=== PATIENT | female | born 2000 | race Caucasian/White ===

== ENCOUNTER 2024-05-06 12:35 | Outpatient (CLI) | payer BC, SELFPAY ==
[2024-05-06 13:42] LABS: HCG,Quantitative 15 mIU/ml (0-5.42)
[2024-05-07 03:36] LABS: Progesterone 1.9 ng/mL (.)
== END 2024-05-06 23:59 | disposition home or self-care (01) ==
PROVIDERS: PCP Family Medicine; Visit Provider Obstetrics & Gynecology
DX: N92.6 Irregular menstruation, unspecified (principal); O02.81 Inappropriate change in quantitative human chorionic gonadotropin (hCG) in early pregnancy; E28.2 Polycystic ovarian syndrome; O03.9 Complete or unspecified spontaneous abortion without complication
CPT/HCPCS: 36415; 84144; 84702

== ENCOUNTER 2024-05-08 12:36 | Outpatient (CLI) | payer BC, SELFPAY ==
[2024-05-08 14:06] LABS: HCG,Quantitative 6 mIU/ml (0-5.42)
== END 2024-05-08 23:59 | disposition home or self-care (01) ==
LOC: LAB 12:38
PROVIDERS: PCP Family Medicine; Visit Provider Obstetrics & Gynecology
DX: O20.0 Threatened abortion (principal)
CPT/HCPCS: 36415; 84702

== ENCOUNTER 2024-05-09 14:00 | Outpatient (CLI) | payer BC, SELFPAY ==
[2024-05-09 14:56] LABS: Hemoglobin A1C 5.1 % (4.0-6.0)
[2024-05-09 15:14] LABS: HCG,Quantitative 5 mIU/ml (0-5.42)
[2024-05-09 15:28] LABS: Thyroid Stimulating Hormone 2.19 uIU/mL (0.465-4.68)
[2024-05-10 03:38] LABS: Testosterone,Total 28 ng/dL (13-71)
[2024-05-10 04:22] LABS: FSH 4.8 mIU/mL (.)
== END 2024-05-09 23:59 | disposition home or self-care (01) ==
LOC: LAB 14:01
PROVIDERS: PCP Family Medicine; Visit Provider Obstetrics & Gynecology
DX: E28.2 Polycystic ovarian syndrome; N91.1 Secondary amenorrhea; O02.81 Inappropriate change in quantitative human chorionic gonadotropin (hCG) in early pregnancy; Z13.1 Encounter for screening for diabetes mellitus
CPT/HCPCS: 36415; 82626; 82670; 83001; 83036; 83498; 84403; 84443; 84702

== ENCOUNTER 2024-06-03 13:58 | Outpatient (CLI) | payer BC, SELFPAY ==
[2024-06-03 15:33] LABS: HCG,Quantitative < 2 mIU/ml (0-5.42)
[2024-06-04 03:37] LABS: Progesterone 6.9 ng/mL (.)
== END 2024-06-03 23:59 | disposition home or self-care (01) ==
LOC: LAB 14:00
PROVIDERS: PCP Family Medicine; Visit Provider Obstetrics & Gynecology
DX: O02.81 Inappropriate change in quantitative human chorionic gonadotropin (hCG) in early pregnancy (principal)
CPT/HCPCS: 36415; 84144; 84702

== ENCOUNTER 2024-12-26 11:01 | Outpatient (CLI) | payer OTHER, SELFPAY ==
--- OUTSIDE RECORDS SUMMARY | 2000-04-26 01:00 | XMS_ITS | Encounter Summary ---
Author Organization [facility] Address [address] [place] [address] Care Team Providers Care Customer Equipment Engineer Name Role Phone Unavailable Primary Care Provider Unavailabl e Encounter Details Date Type Department Care Team (Late st Contact Info) Description 04/26/2000 Hospital Encounter [facility] Department of Radiology [address] [place] [id number] Social History Tobacco Use Types Packs/Day Years Used Date Smoking Tobacco: Never Smokeless Tobacco: Never Alcohol Use Standard Drinks/Week Comments No 0 (1 standard drink = 0.6 oz pur e alcohol) Comments Unknown Sex and Gender Information Value Date Recorded Sex Assigned at Not on file Legal Sex Female 5:11 AM EST Gender Identity Not on file Sexual Orientation Not on file documented as of this encounter Plan of Treatment Not on file documented as of this encounter Visit Diagnoses Not on filedocumented in this encounter
--- OUTSIDE RECORDS SUMMARY | 2024-12-26 11:05 | XMS_ITS | Clinical Summary ---
Author Organization [facility] Address [address] [address] [address] Phone Care Team Providers Care Products Mechanical Design Engineer Name Role Phone Johnson Brigitte Anny MONTILLA Primary Care Provider [phone] Allergies No known active allergies Medications No known medications Surgical History Surgery Date Site/Laterality Comments TONSILLECTOMY Social History Tobacco Use Types Packs/Day Years Used Date Smoking Tobacco: Never Smokeless Tobacco: Never Alcohol Use Standard Drinks/Week Comments No 0 (1 standard drink = 0.6 oz pur e alcohol) Comments No Sex and Gender Information Value Date Recorded Sex Assigned at Not on file Legal Sex Female 3:48 AM EDT Gender Identity Not on file Sexual Orientation Not on file Obstetrics History Last Filed Vital Signs Vital Sign Reading Time Taken Comments Blood Pressure 115/83 07/19/2017 5:00 AM EST Pulse 82 07/19/2017 1:49 AM EST Temperature 37 C (98.6 F) 07/19/2017 1:49 AM EST Respiratory Rate 20 07/19/2017 1:49 AM EST Oxygen Saturation 96% 07/19/2017 5:59 AM EST Inhaled Oxygen Concentration - - Weight 104.3 kg (230 lb) 07/19/2017 1:49 AM EST Height 157.5 cm (5' 2 ) 07/19/2017 1:49 AM EST Body Mass Index 42.07 07/19/2017 1:49 AM EST Plan of Treatment Health Maintenance Due Date Last Done Comments Annual Wellness Exam 2002 HPV (1 - 3-dose series) 2014 DTaP/TDaP/Td (1 - Tdap) 2018 Hepatitis B Vaccine (1 of 3 - 19+ 3-dose series) 2018 Cervical Cancer Screening 2020 Pap Smear 2020 COVID-19 Vaccine ( - 2023-2 5 season) 2024 Influenza Vaccine (#1) 2025 Meningococcal B Vaccine Aged Out No l onger eligible based on patient's age to complete this topic Pneumococcal Vaccine 0-49 Aged Out No longer eligible based on patient's age to complete this topic Insurance [facility] MED[facility] Care Teams Products Mechanical Design Engineer Relationship Specialty Start Date End Date Brigitte Ornelas APRN [address] [place] [address] PCP - General Nurse Practitioner-Pediatrics 02/03/16
--- OUTSIDE RECORDS SUMMARY | 2024-12-26 11:05 | XMS_ITS | Clinical Summary ---
Author Organization [facility] Address [address], [address] [place] [address] Care Team Providers Care Technical Sales Support Specialist Name Role Phone System, Referring Not In Primary Care Provider U navailable Allergies No known active allergies Social History Tobacco Use Types Packs/Day Years Used Date Smoking Tobacco: Never Alcohol Use Standard Drinks/Week Comments No 0 (1 standard drink = 0.6 oz pur e alcohol) Comments Unknown Sex and Gender Information Value Date Recorded Sex Assigned at Not on file Legal Sex Female 1:15 PM EST Gender Identity Not on file Sexual Orientation Not on file Last Filed Vital Signs Vital Sign Reading Time Taken Comments Blood Pressure 110/75 09/16/2015 1:36 PM EDT Pulse 101 09/16/2015 1:[address] Andres chen with d/c with sinus tach Temperature 36.9 C (98.5 F) 09/16/2015 12:47 PM EDT Respiratory Rate 16 09/16/2015 1:36 PM EDT Oxygen Saturation 100% 09/16/2015 1:3 6 PM EDT Inhaled Oxygen Concentration - - Weight 88.5 kg (195 lb) 09/16/2015 12:4 7 PM EDT Height 158.8 cm (5' 2.5 ) 09/16/2015 12 :47 PM EDT Body Mass Index 35.1 09/16/2015 12:47 PM EDT Plan of Treatment Not on file Insurance [employer] [facility] Care Teams Technical Sales Support Specialist Relationship Specialty Start Date End Date System, Referring Not In PCP - General 09/16/15
--- OUTSIDE RECORDS SUMMARY | 2024-12-26 11:05 | XMS_ITS | Clinical Summary ---
Author Organization [facility] Address [address] [place] [address] Care Team Providers Care Ship Joiner Name Role Phone Brigitte Ornelas APRN Primary Care Provider [phone] Allergies Active Allergy Reactions Criticality Noted Date Comments Amoxicillin Hives Medium 12/30/2021 Sulfamethoxazole-Trimethoprim Hives Medium 2021 Medications acetaminophen (Tylenol) 325 MG tablet Take 2 tablets (650 mg total) by mouth every 6 (six) hours. 100 tablet 01/01/2022 Active Active Problems Problem Noted Date Diagnosed Date Gestational hypertension 01/01/2022 Resolved Problems Problem Noted Date Diagnosed Date Resolved Date premature rupture of membranes (PPROM) with unknown onset of labor 12/30/2021 073 Immunizations Immunization Administration Dates Next Due Rho (D) Immune Globulin 12/31/2021 Social History Tobacco Use Types Packs/Day Years Used Date Smoking Tobacco: Never Smokeless Tobacco: Never Alcohol Use Standard Drinks/Week Comments Never 0 (1 standard drink = 0.6 oz pur e alcohol) Comments No Sex and Gender Information Value Date Recorded Sex Assigned at Not on file Legal Sex Female 11:28 PM EDT Gender Identity Not on file Sexual Orientation Not on file Last Filed Vital Signs Vital Sign Reading Time Taken Comments Blood Pressure 132/90 01/01/2022 8:07 AM EDT Pulse 76 01/01/2022 8:07 AM EDT Temperature 36.6 C (97.8 F) 01/01/2022 8:07 AM EDT Respiratory Rate 18 01/01/2022 8:07 AM EDT Oxygen Saturation 94% 01/01/2022 8:07 AM EDT Inhaled Oxygen Concentration - - Weight 120 kg (265 lb) 12/30/2021 1:28 AM EDT Height 154.9 cm (5' 1 ) 12/30/2021 1:28 AM EDT Body Mass Index 50.07 12/30/2021 1:28 AM EDT Plan of Treatment Not on file Advance Directives * Full Code (Latest Code Status on File) Date Activated Date Inactivated Comments 12/30/2021 1:46 AM 01/01/2022 5:34 PM Question Answer Comments Patient has decision-making capacity? Yes Care Teams Ship Joiner Relationship Specialty Start Date End Date Brigitte Ornelas APRN [address] [place] [address] PCP - General 12/30/21 12/03/27
--- OUTSIDE RECORDS SUMMARY | 2024-12-26 11:06 | XMS_ITS | Clinical Summary ---
Author Organization [facility] Address [address] [place] [id number] Care Team Providers Care Machine Rigger Name Role Phone OrnelasSriramMioluna Brigitte MONTILLA-COMMUNICATIONS ATTENDANT Primary Care Provid er Source Comments [facility] is fully rolled out with thefollowing exceptions:[facility] Allergies No known active allergies Medications ibuprofen (MOTRIN) 800 MG tablet Take 800 mg by mouth every 6 hours as needed. Active diclofenac sodium (VOLTAREN) 75 MG delayed release tabletIndication s:Arthralgia of both knees Take 1 Tab (75 mg total) by mouth 2 times a day. 40 Tab 1 02/18/2015 Active methocarbamol (ROBAXIN) 500 MG tabletIndication s:Arthralgia of both knees Take 1 Tab (500 mg total) by mouth 3 times a day. 30 Tab 1 02/18/2015 Active metFORMIN (GLUCOPHAGE) 500 MG tablet Take 500 mg by mouth 2 times a day. Active norelgestromin-e thinyl estradiol (XULANE) 150-35 MCG/24HR patch Apply 1 Patch every 7 days. Active Active Problems Problem Noted Date Diagnosed Date Syncope 03/19/2015 Chest pain on exertion 10/16/2014 Headache, chronic daily 10/16/2014 Back pain 10/16/2014 Dizziness 10/16/2014 Family History Medical History Relation Name Comments ADHD/ADD Brother Headaches Father High Blood Pressure Father Hypertension Father Diabetes Mellitus Maternal Grandfather Diabetes Mellitus Maternal Grandmother Hypertension Maternal Grandmother Thyroid Disease Maternal Grandmother Asthma Mother Depression Mother Headaches Mother Migraines Mother Sleep Apnea Mother Diabetes Mellitus Paternal Grandfather Diabetes Mellitus Paternal Grandmother ADHD/ADD Sister Diabetes Mellitus Sister Relation Name Status Comments Brother Father Alive Maternal Grandfather Alive Maternal Grandmother Alive Mother Alive Paternal Grandfather Paternal Grandmother Alive Sister Social History Tobacco Use Types Packs/Day Years [...] Sign Reading Time Taken Comments Blood Pressure 135/75 03/19/2015 9:55 AM EDT Pulse 98 03/19/2015 9:55 AM EDT Temperature - - Respiratory Rate 20 03/19/2015 9:51 AM EDT Oxygen Saturation - - Inhaled Oxygen Concentration - - Weight 92.1 kg (203 lb) 03/19/2015 9:51 AM EDT Height 157.9 cm (5' 2.17 ) 03/19/2015 9:51 AM ED T Body Mass Index 36.93 03/19/2015 9:51 AM EDT Plan of Treatment Health Maintenance Due Date Last Done Comments MMR IMMUNIZATION (1 of 1 - S tandard series) 2000 DTAP/Tdap/Td IMMUNIZATION (1 - Tdap) 2006 VARICELLA IMMUNIZATION (1 of 2 - 13+ 2-dose series) 2012 HPV IMMUNIZATION (1 - 3-dose series) 2014 HEPATITIS B IMMUNIZATION (1 of 3 - 19+ 3-dose series) 2018 COVID-19 Vaccine (1 - 2023-2 5 season) 2024 AMB SEASONAL FLU VACCINE (#1) 02/03/2025 HIB IMMUNIZATION Aged Out No longer e ligible based on patient's age to complete this topic IPV IMMUNIZATION Aged Out No longer e ligible based on patient's age to complete this topic MCV4 IMMUNIZATION Aged Out No longer eligible based on patient's age to complete this topic MENINGOCOCCAL B VACCINE Aged Out No l onger eligible based on patient's age to complete this topic PNEUMOCOCCAL IMMUNIZATION Aged Out No longer eligible based on patient's age to complete this topic Respiratory Syncytial Virus (RSV) <20mo Aged Out No longer eligible b ased on patient's age to complete this topic Insurance [employer] [facility] Care Teams Machine Rigger Relationship Specialty Start Date End Date Brigitte Richards, ROLDAN-COMMUNICATIONS ATTENDANT [address] [place] [address] PCP - General 04/22/14
--- OUTSIDE RECORDS SUMMARY | 2024-12-26 11:06 | XMS_ITS | Data Portability ---
Author Organization [facility] Address [address] [place] [address] Assessment Encounter Date Assessment Date Assessment LastModified by Organization Details LastModified Time 04/29/2024 04/29/2024 -Medications were reviewed and any necessary updates and renewals were made, patient instructed to complete as prescribed. -The potential side effects of medications were discussed. -Counseling was done on care goals and ways to prevent future hospitalizatio ns. -Further treatment per orders listed below. -Will call with lab results when available. RTO for new or worsening symptoms. [email or web address] Not available 04/29/2024 17:57:13 09/30/2024 09/30/2024 Call office with questions or concerns. RTO for new or worsening symptoms. [email or web address] Not available 09/30/2024 11:42:23 Plan of Treatment Reminders Order Date Submit Date Provider Last Modified By Organization Details Last Modified Time Details Appointments None recorded. Lab TSH + free T4, serum 2023 024 [email or web address] [facility], [address], Alfredo [address], [place], [address], 4 09:54:09 CMP, serum or plasma 2023 024 [email or web address] [facility], [address], [place] [address], [place], [address], 4 10:41:40 C reactive protein, QN, serum or plasma 2023 024 [facility], [address], [address] [address], [place], [address], 4 10:41:40 erythrocyte sedimentati on rate by westergren method 2023 024 [email or web address] [facility], [address], [place] [address], [place], [address], 4 10:41:40 Referral breast surgery referral - [facility] brandon, Dr Murray please 2023 024 [facility] 12 Krissy Mcmanus MD, [address] [place], [address], 5 15:06:53 Procedures None recorded. Surgeries None recorded. Imaging XR, knee, 3 view 2024 025 AURY Not available 5 09:02:49 Medication Orders clindamycin HCl 300 mg capsule 2023 024 [facility], [address] [place] [address], [address], 4 15:32:47 phentermine 37.5 mg tablet 2023 024 [facility], [address] [place] [address], [address], 4 15:32:44 Patient TargetsNo targets recorded. Patient Instructions Encounter Date Encounter Id Patient Instructions Last Modified By Organization Details Last Modified Time 09/30/2024 [id number] body mass index: care instructions [email or web address] Not available 09/30/2024 11:43:25 Reason for Referral Breast Surgery Referral for Neck pain [facility] brandon, Dr Murray please Referring Physician: Doug Corrales, Family Medicine, Encounter Date: 02/01/2024 Results Created Date Observation Date Name Description Value Unit Range Abnormal Flag Note LastModifiedBy Organization Detail LastModifiedTime 04/24/20 24 04/23/2024 XR, chest , 2 view No observ ation record ed. [email or web address] Not Available 2023 17:53:37 10/03/19 25 10/02/2024 XR, knee, 3 view No observ ation record ed. [email or web address] Not Available 2024 11:06:47 Result Notes None recorded. Problems Name Problem SNOMED Code Status Onset Date Resolution Date Notes Provider Name and Address Organization Details Recorded Time Immuniza tion due [id number] Completed [-] Flu-decl giancarlo [-] Covid-de clines [x] Tdap-11/04 01/24 Rajat Good RN [address], [place], [address], [place] [facility] 2 14:31:31 Antenata l screenin g Completed [-] CF-ask at [facility] lines [x] MaternIT -- 46XX [x] AFP negative Rajat Good RN [address], [place], [address], [place] [facility] 2 14:31:31 Marginal insertio n of umbilica l cord [id number] Completed [ ] q 4 wk growth/A FI US @ 28 wk Rajat Good RN [address], [place], [address], [place] [facility] 2 14:31:31 RhD negative [id number] Completed Rhogam given 11/15 [x] Ab screen negative Rajat Good RN [address], [place], [address], [place] [facility] 2 14:31:31 Impaired glucose toleranc e in pregnanc y [id number] Completed 1 hour 149 [x] 3 hour-nml ; FBS 77, 1hr 125, 2hr 130, 3hr 150 Rajat Good RN [address], [place], [address], [place] [facility] 2 14:31:31 Urinary tract infectio n in pregnanc y [id number] Completed 3 BACTERIA --see below Rajat Good RN [address], [place], [address], [place] [facility] 2 14:31:31 Itching of skin 202761034 Completed rx diphenhy dramine and triamcin alone given bile acids/LF Ts obtained Rajat Good RN [address], [place], [address], [place] [facility] 2 14:31:31 Contrace ption care Completed Planning patch? 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 Aria Bravo, [employer] [employer] [address], [place], [address], [place] [facility] 3 15:55:07 Prediabe seda 265874794 Completed 202103/30/2023 Marya Sarah, [employer] [address], [place], [address], [place] [facility] 3 10:49:22 Maternal obesity complica ting pregnanc y, childbir th and the puerperi , antepart [id number] 07 Completed 2021 BMI 45.7, h/o Prediabe seda A1c @ Hx 5.3% [x] Early 1hr GTT-131; [x] Nutritio n Referral -08/02/21 [x] Baby ASA Rajat Good RN [address], [place], [address], [place] [facility] 2 14:31:31 Maternal obesity complica ting pregnanc y, childbir th and the puerperi um, antepart 0206208807 07 Completed 202107/18/2022 BMI 45.7, h/o Prediabe seda A1c @ Hx 5.3% [x] Early 1hr GTT-131; [x] Nutritio n Referral -08/02/21 [x] Baby ASA [facility] [address], [place], [address], [place] - [facility] 3 12:01:22 Primigra pablo [id number] Completed 2021 [x]x 81mg ASA start 2nd TM (pending dating [place]) advised 07/23; rx sent 08/02 Marianne Foster MD [address], [place], [address], [place] [facility] 2 19:31:43 Primigra pablo [id number] Completed 202107/18/2022 [x]x 81mg ASA start 2nd TM (pending dating [place]) advised 07/23; rx sent 08/02 [facility] [address], [place], [address], [place] [facility] 3 12:01:11 Irregula r periods 33162569 Completed 2021 Marianne Foster MD [address], [place], [address], [place] [facility] 2 19:30:49 Irregula r periods 43055315 Completed 202110/21/2021 Cristiana Woody APRN [address], [place], [address], [place] [facility] 2 12:17:32 Nausea 930257788 Completed 2021 B6 25mg TID Rajat Good RN [address], [place], [address], [place] [facility] 2 14:31:31 Nausea 551378473 Completed 202107/18/2022 B6 25mg TID [facility] [address], [place], [address], [place] [facility] 3 12:01:15 Heartbur n 31974551 Completed 2021 Famotidi ne 20mg BID Rajat Good RN [address], [place], [address], [place] [facility] 2 14:31:31 Heartbur n 65259537 Completed 202107/19/2022 Famotidi ne 20mg BID Aria Bravo APRN [address], [place], [address], [place] [facility] 3 15:55:13 History of depressi on 028618218 Active 2021 was medicate d age 11-13; declines med, no current concerns Aria Bravo APRN [address], [place], [address], [place] [facility] 3 15:55:00 History of depressi on 220446614 Completed 2021 was medicate d age 12-13; declines med, no current concerns Rajat Good RN [address], [place], [address], [place] [facility] 2 14:31:31 Glucose toleranc e test outside referenc e range 385954824 Completed 202107/18/2022 [facility] [address], [place], [address], [place] [facility] 3 12:01:26 Glucose toleranc e test outside referenc e range 867940736 Completed 2021 Marya Sarah APRN [address], [place], [address], [place] [facility] 2 10:21:03 Blood group A Rh(D) negative 242386489 Active 2022 Aria Bravo APRN [address], [place], [address], [place] [facility] 3 15:54:52 Miscarri age 50100004 Completed 202203/30/2023 Marya Sarah APRN [address], [place], [address], [place] [facility] 3 10:49:26 Family history of breast cancer 829380575 Active 2022 MG; had breast cancer age 36 then again in her 50s Marya Sarah, [employer] [address], [place], [address], [place] [facility] 3 10:48:15 Amenorrh ea 23701612 Active 2022 Marya Sarah, [employer] [employer] [address], [place], [address], [place] [facility] 3 10:51:42 Vaginal irritati on 005187149 Active 2022 Marya Sarah, [employer] [employer] [address], [place], [address], [place] [facility] 3 10:51:46 Dyslipid emia 949708903 Active 2022 Marya Sarah, [employer] [employer] [address], [place], [address], [place] [facility] 3 15:48:18 Mixed anxiety and depressi ve disorder 091630356 Active 2023 Doug Corrales MD [address], [place], [address], [place] [facility] 4 19:02:17 Pain of knee region 2835499976 Active 2024 Any Tyler, [employer] [employer] [address], [place], [address], [place] [facility] 5 11:38:29 Problem Notes None recorded. Procedures Surgical History Date Name Laterality Status Provider Name and Address Organization Details Recorded Time 04/29/20 24 Medication Reconcilliation completed Denise Nieves [place] - [facility] 04/29/2024 15:09:39 12/18/19 22 OB Ultrasound Summary completed Keli Spears [place] - [facility] 12/17/2021 10:55:31 11/16/19 22 OB Ultrasound Summary completed Laura Holman [place] - [facility] 11/15/2021 10:19:25 09/24/19 22 OB Ultrasound Summary completed Laura Holman [place] [facility] 09/23/2021 16:42:34 08/02/19 22 Date of Last Pap Smear completed Marya Tyrel, [employer] [employer] [address], [place], [address], [place] [facility] 08/05/2021 13:03:16 07/23/19 22 OB Ultrasound Summary completed Laura Holman [place] - [facility] 07/23/2021 14:18:41 06/08/19 19 Systolic B/P less than 130 mm Hg completed Siria Chayo [place] - [facility] 06/08/2018 15:00:13 06/08/19 19 Diastolic B/P 80-89 mm Hg completed Siria Chayo [place] - [facility] 06/08/2018 15:00:17 tonsilectomy/adeno ids completed Crystal Gely [place] - [facility] 08/23/2016 11:02:27 Imaging Results None recorded. Procedure Notes None recorded. Medical Equipment None Reported. Allergies Allergen ID Allergen Name Allergen Category Reaction Reaction Severity Criticality Documentation Date Start Date Code Code System Note Provider Name and Address Organization Details Recorded Time [id number] amoxicill in medicatio n hives Not available Not available 03/30/2023 723 RxNorm Gladys dia, [place] - [facility] 10:17:07 Medications Name Sig Start Date Stop Date Status Note LastModified by Organization Details LastModified Time amoxicill in 500 mg capsule TAKE ONE (1) CAPSULE TWICE A DAY BY ORAL ROUTE FOR 7 DAYS. 12/28 completed Not Available Not Available Not Available medroxypr ogesteron e 10 mg tablet TAKE ONE (1) TABLET (10 MG) BY ORAL ROUTE ONCE DAILY FOR 10 DAYS 11/06 completed Not Available Not Available Not Available metformin 500 mg tablet take 1 tablet (500 mg) by oral route 2 times per day with morning and evening meals for 30 days 01/11 completed metformi n 500 mg oral tablet;P rescribe Status: Prescrib ed on: 06/03/20 15 2:43PM;D iscontin ued Status: Disconti nued on: 01/12/20 16 2:42PM;U ser: tartern; Est. Completi on: 08/02/19 16;Pharm acyVerif ied: 06/03/20 15 2:43PM Not Available Not Available Not Available Augmentin 875 mg-125 mg tablet take 1 tablet by oral route every 12 hours for 7 days 07/21 completed Not Available Not Available Not Available acetamino phen 325 mg tablet 03/30 completed Not Available Not Available Not Available Ovide 0.5 % lotion apply by topical route to dry hair and rub gently until the scalp is thorough ly moistene d and let dry naturall y; shampoo after 8-12 hours fo 04/26 completed Ovide 0.5 % topical lotion;P rescribe Status: Prescrib ed on: 04/08/20 13 9:10AM;D iscontin ued Status: Disconti nued on: 04/26/20 13 4:38PM;U ser: vesth;Es t. Completi on: 04/09/20 13;Pharm acyVerif ied: 04/08/20 13 9:10AM Not Available Not Available Not Available clindamyc in HCl 300 mg capsule Take 1 capsule 3 times a day by oral route after meal(s) for 7 days. 04/29 completed Not Available Not Available Not Available Vitamin C 500 mg tablet Take 1 tablet twice a day by oral route for 30 days. 07/21 completed Not Available Not Available Not Available triamcino lone acetonide 0.5 % topical cream apply a thin film to the affected skin areas by topical route 2 times per day for 7 days 02/24 completed triamcin olone acetonid e 0.5 % topical cream;Re corded Status: Recorded on: 02/04/20 10 10:49AM; Disconti nued Status: Disconti nued on: 02/25/20 11 4:01PM;U ser: rankinw; Est. Completi on: 02/11/20 10 Not Available Not Available Not Available azithromy esperanza 250 mg tablet TAKE 2 TABLETS TODAY, THEN TAKE 1 TABLET EVERY DAY FOR 4 DAYS 07/21 completed Not Available Not Available Not Available ibuprofen 800 mg tablet TAKE 1 TABLET BY MOUTH EVERY 12 HOURS NEEDED FOR PAIN 03/30 completed Not Available Not Available Not Available B Complex-V itamin B12 tablet TAKE ONE (1) TABLET EVERY DAY BY ORAL ROUTE FOR 30 DAYS. 07/21 completed Not Available Not Available Not Available Cheratuss in DAC 30 mg-10 mg-100 mg/5 mL oral syrup take 5 millilit ers by oral route every 6 hours as needed for 10 days 07/29 completed Meagan reddy DAC 30-10-10 0 mg/5 mL oral syrup;Re corded Status: Recorded on: 07/02/19 10 3:42PM;D iscontin ued Status: Disconti nued on: 07/29/19 10 2:46PM;U ser: gored;Es t. Completi on: 07/12/19 10;Indic ation: Cold Symptoms - () Not Available Not Available Not Available promethaz ine 12.5 mg tablet take 1/2 - 1 tablet by oral route PRN for nausea 08/03 completed prometha zine 12.5 mg oral tablet;R ecorded Status: Recorded on: 06/29/19 12 2:00PM;D iscontin ued Status: Disconti nued on: 08/04/19 12 10:44AM; User: ritchie;Nicole tDionne Completi on: 07/06/19 12;Print ed: 06/29/19 12 Not Available Not Available Not Available pyridoxin e (vitamin B6) 25 mg tablet Take 1 tablet 3 times a day by oral route for 30 days. 10/21 completed Not Available Not Available Not Available ondansetr on HCl 4 mg tablet 11/16 completed Not Available Not Available Not Available fluoxetin e 10 mg tablet take 1 tablet by oral route daily for 30 days 04/26 completed fluoxeti ne 10 mg oral tablet;P rescribe Status: Prescrib ed on: 03/13/20 13 2:29PM;D iscontin ued Status: Disconti nued on: 04/26/20 13 4:38PM;U ser: jonest;E st. Completi on: 07/11/19 14;Indic ation: Depressi on - (311);Ph armacyVe rified: 03/13/20 13 2:29PM Not Available Not Available Not Available prednison e 5 mg tablet take 1 tablet (5 mg) by oral route 2 times per day for 7 days 02/02 completed predniso ne 5 mg oral tablet;P rescribe Status: Prescrib ed on: 01/22/20 15 2:04PM;D iscontin ued Status: Disconti nued on: 02/03/20 15 12:50PM; User: Roni whalen Jeniarun on: 01/29/20 15;Pharm Neelima ied: 01/22/20 15 2:04PM Not Available Not Available Not Available Pyridium 200 mg tablet Take 1 tablet 3 times a day by oral route as needed for 3 days. 06/29 completed Not Available Not Available Not Available promethaz ine 6.25 mg-codein e 10 mg/5 mL syrup Take 5 mL every 6 hours by oral route. 12/14 completed Not Available Not Available Not Available phentermi ne 37.5 mg tablet TAKE ONE (1) TABLET EVERY DAY BY ORAL ROUTE BEFORE A MEAL FOR 30 DAYS. 04/29 completed Not Available Not Available Not Available melatonin 3 mg tablet 04/06 completed melatoni n 3 mg oral tablet;R ecorded Status: Recorded on: 07/29/19 10 2:46PM;D iscontin ued Status: Disconti nued on: 04/06/20 12 1:00PM;U ser: vesth Not Available Not Available Not Available Tamiflu 75 mg capsule take 1 capsule (75 mg) by oral route 2 times per day for 5 days 07/21 completed Not Available Not Available Not Available sulfameth oxazole 800 mg-trimet hoprim 160 mg tablet TAKE ONE (1) TABLET EVERY 12 HOURS BY ORAL ROUTE FOR 7 DAYS. 12/28 completed Not Available Not Available Not Available triamcino lone acetonide 0.1 % topical cream APPLY A THIN LAYER TO THE AFFECTED AREA(S) BY TOPICAL ROUTE TWO (2) TIMES PER DAY NEEDED FOR PRURITUS 07/18 completed Not Available Not Available Not Available amoxicill in 500 mg tablet take 1 tablet (500 mg) by oral route 3 times per day for 10 days 08/04 completed amoxicil ryne 500 mg oral tablet;P rescribe Status: Prescrib ed on: 07/15/19 15 2:28PM;D iscontin ued Status: Disconti nued on: 08/05/19 15 3:37PM;U ser: gored;Es t. Completi on: 07/25/19 15;Pharm acyVerif ied: 07/15/19 15 2:28PM Not Available Not Available Not Available Miconazol e-7 2 % vaginal cream INSERT ONE (1) APPLICAT ORFUL EVERY DAY BY VAGINAL ROUTE FOR 7 DAYS. 07/18 completed Not Available Not Available Not Available famotidin e 20 mg tablet TAKE ONE (1) TABLET TWICE A DAY BY ORAL ROUTE. 07/18 completed Not Available Not Available Not Available Depo-Prov era 150 mg/mL intramusc ular suspensio n Inject 1 mL every 3 months by intramus cular route. 06/08 completed Not Available Not Available Not Available dicyclomi ne 20 mg tablet 11/16 completed Not Available Not Available Not Available hydrocort isone 1 % topical cream APPLY A THIN LAYER TO THE AFFECTED AREA(S) BY TOPICAL ROUTE TWO (2) TIMES PER DAY 07/18 completed Not Available Not Available Not Available cephalexi n 500 mg capsule TAKE ONE (1) CAPSULE EVERY DAY BY ORAL ROUTE FOR 30 DAYS. TAKE REMAINDE R OF PREGNANC Y. 07/18 completed Not Available Not Available Not Available Gas Relief (simethic one) 80 mg chewable tablet 07/18 completed Not Available Not Available Not Available Proctofoa m HC 1 %-1 % apply to the affected area(s) by topical route 4 times per day for 7 days 01/11 completed Proctofo am HC 1-1 % rectal foam;Pre scribe Status: Prescrib ed on: 03/23/20 15 12:47PM; Disconti nued Status: Disconti nued on: 01/12/20 16 2:42PM;U ser: andrusa; Est. Completi on: 03/30/20 15;Pharm acyVerif ied: 03/23/20 15 12:47PM Not Available Not Available Not Available clotrimaz ole-betam ethasone 1 %-0.05 % topical cream APPLY TO THE AFFECTED AND SURROUND ING AREAS OF SKIN BY TOPICAL ROUTE TWO (2) TIMES PER DAY IN THE MORNING AND EVENING FOR TWO (2) WEEKS 11/06 completed Not Available Not Available Not Available diphenhyd ramine 25 mg tablet take 1-2 tablets by oral route every 6 hours as needed for itching 07/18 completed Not Available Not Available Not Available Banophen 25 mg capsule TAKE ONE (1) TO TWO (2) CAPSULES BY MOUTH EVERY SIX (6) HOURS NEEDED FOR ITCHING 07/18 completed Not Available Not Available Not Available Cefzil 250 mg/5 mL oral suspensio n take 7.5 millilit ers by oral route every 12 hours 07/29 completed Cefzil 250 mg/5 mL oral suspensi on for reconsti tution;R ecorded Status: Recorded on: 07/02/19 10 3:42PM;D iscontin ued Status: Disconti nued on: 07/29/19 10 2:46PM;U ser: gored;Es t. Completi on: 07/12/19 10 Not Available Not Available Not Available zinc gluconate 50 mg tablet TAKE ONE (1) TABLET TWICE A DAY BY ORAL ROUTE FOR 14 DAYS. 07/21 completed Not Available Not Available Not Available zinc 50 mg tablet Take 1 tablet twice a day by oral route for 14 days. 07/21 completed Not Available Not Available Not Available ranitidin e 150 mg capsule take 1 capsule (150 mg) by oral route once daily at bedtime for 14 days 02/05 completed ranitidi ne HCl 150 mg oral capsule; Prescrib e Status: Prescrib ed on: 01/22/20 15 2:04PM;D iscontin ued Status: Disconti nued on: 02/06/20 15 4:08PM;U ser: jonest;E st. Completi on: 02/05/20 15;Pharm acyVerif ied: 01/22/20 15 2:04PM Not Available Not Available Not Available hydrochlo rothiazid e 25 mg tablet Take 1 tablet every day by oral route for 30 days. 08/31 completed Not Available Not Available Not Available permethri n 1 % topical liquid apply a sufficie nt amount of shampoo by topical route once allow to remain on hair for 10 minutes before rinsing off with water for 1 day 04/08 completed permethr in 1 % topical liquid;P rescribe Status: Prescrib ed on: 03/25/20 13 12:05PM; Disconti nued Status: Disconti nued on: 04/08/20 13 9:09AM;U ser: jonest;E st. Completi on: 03/28/20 13;Indic ation: Pediculo sis Capitis - ();Phar Manuela fied: 03/25/20 13 12:05PM Not Available Not Available Not Available dexametha sone sodium phosphate 4 mg/mL injection solution 1 ML IM 07/31 completed Not Available Not Available Not Available ibuprofen 600 mg tablet 07/18 completed Not Available Not Available Not Available methylpre dnisolone 4 mg tablets in a dose pack TAKE DIRECTED FOR SIX (6) DAYS 07/21 completed Not Available Not Available Not Available ketoconaz ole 2 % topical cream APPLY TO THE AFFECTED AREA(S) BY TOPICAL ROUTE ONCE DAILY 04/29 completed Not Available Not Available Not Available ondansetr on 4 mg disintegr ating tablet DISSOLVE 1 TABLET IN MOUTH EVERY 8 HOURS NEEDED FOR NAUSEA AND VOMITING 04/29 completed Not Available Not Available Not Available metformin ER 500 mg tablet,ex tended release 24 hr TAKE ONE (1) TABLET TWICE A DAY BY ORAL ROUTE FOR 30 DAYS. 01/31 completed Not Available Not Available Not Available Ortho Tri-Cycle n (28) 0.18 mg(7)/0.2 15mg(7)/0 .25 mg(7)-0.0 35 mg tablet take 1 tablet by oral route once daily for 28 days 04/26 completed Ortho Tri-Cycl en (28) 0.18/0.2 15/0.25 mg-35 mcg (28) oral tablet;P rescribe Status: Prescrib ed on: 03/13/20 13 2:30PM;D iscontin ued Status: Disconti nued on: 04/26/20 13 4:38PM;U ser: jonest;E st. Completi on: 07/03/19 14;Pharm acyVerif ied: 03/13/20 13 2:30PM Not Available Not Available Not Available naproxen 500 mg tablet Take 1 tablet twice a day by oral route for 7 days. 10/15 completed Not Available Not Available Not Available progester one micronize d 100 mg capsule 09/30 completed Not Available Not Available Not Available amoxicill in 500 mg-potass ium clavulana te 125 mg tablet take 1 tablet by oral route every 8 hours for 10 days 12/14 completed Not Available Not Available Not Available Adult Low Dose Aspirin 81 mg tablet,de layed release Take 1 tablet every day by oral route. 10/21 completed Not Available Not Available Not Available Vitamin 27 mg iron-0.8 mg tablet Take 1 tablet every day by oral route for 30 days. 07/18 completed Not Available Not Available Not Available Benzaclin 1 %-5 % topical gel apply to affected area(s) by topical route once daily in the evening for 30 days 06/27 completed Benzacli n 1-5 % topical gel;Al rded Status: Recorded on: 12/03/19 10 3:26PM;D iscontin ued Status: Disconti nued on: 06/27/19 12 5:04PM;U ser: rankinw; Est. Completi on: 03/02/20 10;Indic ation: Acne Vulgaris - ([phone]);Prin victor m: 12/03/19 10 Not Available Not Available Not Available medroxypr ogesteron e 150 mg/mL intramusc ular syringe Inject 1 mL EVERY 12 weeks by intramus cular route. 07/31 completed Not Available Not Available Not Available Sprintec (28) 0.25 mg-0.035 mg tablet Take 1 tablet every day by oral route. 04/25 completed Not Available Not Available Not Available Allergy Relief (loratadi ne) 10 mg tablet take 1 tablet (10 mg) by oral route once daily for 14 days 11/06 completed Allergy Relief (loratad ine) 10 mg oral tablet;P rescribe Status: Prescrib ed on: 09/13/19 14 5:30PM;D iscontin ued Status: Disconti nued on: 11/07/19 14 4:22PM;U ser: andra;E st. Completi on: 09/27/19 14;Pharm Neelima ied: 09/13/19 14 5:30PM Not Available Not Available Not Available Antifunga l (clotrima zole) 1 % topical cream APPLY TO THE AFFECTED AND SURROUND ING AREAS OF SKIN BY TOPICAL ROUTE TWO (2) TIMES PER DAY IN THE MORNING AND EVENING FOR 14 DAYS 04/29 completed Not Available Not Available Not Available Remeron 02/05 completed Remeron oral;Rec orded Status: Recorded on: 10/04/19 15 2:25PM;D iscontin ued Status: Disconti nued on: 02/06/20 15 4:08PM;U ser: andra Not Available Not Available Not Available ProAir HFA 90 mcg/actua tion aerosol inhaler INHALE TWO (2) PUFFS EVERY FOUR (4) HOURS BY INHALATI ON ROUTE NEEDED FOR 30 DAYS. 07/21 completed Not Available Not Available Not Available HyperRHO S/D 1,500 unit (300 mcg) intramusc ular syringe Inject 300 microgra ms by intramus cular route as directed . 03/30 completed Not Available Not Available Not Available Dallergy PE 2 mg-10 mg-0.75 mg/5 mL oral liquid take 5 millilit er (2-10-0. 75 mg/5 mL) by oral route Q4-6H PRN for 10 days 02/24 completed Dallergy PE 2-10-0.7 5 mg/5 mL oral liquid;R ecorded Status: Recorded on: 07/14/19 11 4:56PM;D iscontin ued Status: Disconti nued on: 02/25/20 11 4:01PM;U ser: trista; Est. Completi on: 07/24/19 11 Not Available Not Available Not Available DOK 100 mg tablet 07/18 completed Not Available Not Available Not Available cholecalc iferol (vitamin D3) 50 mcg (2,000 unit) tablet TAKE 1 TABLET BY MOUTH EVERY DAY 07/21 completed Not Available Not Available Not Available Vitamin D3 50 mcg (2,000 unit) capsule Take 1 capsule every day by oral route for 30 days. 07/21 completed Not Available Not Available Not Available spinosad 0.9 % topical suspensio n APPLY 30 - 120 MILLILIT ERS BY TOPICAL ROUTE TO DRY HAIR, SATURATI NG HAIR AND SCALP. AFTER 10 MIN RINSE WITH WARM WATER. MAY REPEAT IN 7 DAYS 02/01 completed Not Available Not Available Not Available antipyrin e-benzoca ine 5.5 %-1.4 % ear drops instill into right ear by otic route every 2 hours as needed enough drops to fill ear canal for 3 days 04/25 completed antipyri ne-benzo eamon 5.5-1.4 % otic drops;Pr escribe Status: Prescrib ed on: 02/20/20 14 1:33PM;D iscontin ued Status: Disconti nued on: 04/25/20 14 2:55PM;U ser: [email or web address];E st. Completi on: 02/23/20 14;Indic ation: Earache - (06.3887 00);Phar [email or web address] fied: 02/20/20 14 1:33PM Not Available Not Available Not Available Sklice 0.5 % lotion apply to affected area by topical route daily for 1 day 01/04 completed Sklice 0.5 % topical lotion;P rescribe Status: Prescrib ed on: 01/04/20 13 1:23PM;D iscontin ued Status: Disconti nued on: 01/05/20 13 11:40AM; User: [email or web address];Es t. Completi on: 01/05/20 13;Pharm acyVerif ied: 01/04/20 13 1:23PM Not Available Not Available Not Available Xulane 150 mcg-35 mcg/24 hr transderm al patch apply 1 patch by transder mal route once weekly 01/11 completed Xulane 150-35 mcg/24 hr transder mal patch weekly;P rescribe Status: Prescrib ed on: 06/03/20 15 2:43PM;D iscontin ued Status: Disconti nued on: 01/12/20 16 2:42PM;U ser: [email or web address]; Pharmacy Verified : 06/03/20 15 2:43PM Not Available Not Available Not Available BinaxNOW COVID-19 Ag Self Test kit TEST DIRECTED TODAY 07/18 completed Not Available Not Available Not Available Vitals Date Recorded Body height Body mass index (BMI) Body weight Body temperature Heart rate Oxygen saturation Oxygen saturation in Arterial blood by Pulse oximetry Respiratory rate Pain severity - 0-10 verbal numeric rating [Score] - Reported Systolic And Diastolic Provider Name and Address Organization Details Last Updated DateTime 5 157.48 cm 47.2 kg/m2 528131. 23 g 98 [degF] 85 /min 98 % 98 % 18 /min 7 120/82 mm[Hg] Denise Nieves [place] - [facility] 5 11:29:52 Date Recorded Body weight Heart rate Oxygen saturation Oxygen saturation in Arterial blood by Pulse oximetry Pain severity - 0-10 verbal numeric rating [Score] - Reported Systolic And Diastolic Provider Name and Address Organization Details Last Updated DateTime 4 770170. 32 g 100 /min 97 % 97 % 0 126/80 mm[Hg] [facility] [place] - [facility] 4 16:44:05 Date Recorded Body height Body mass index (BMI) Body weight Heart rate Oxygen saturation Oxygen saturation in Arterial blood by Pulse oximetry Respiratory rate Pain severity - 0-10 verbal numeric rating [Score] - Reported Systolic And Diastolic Provider Name and Address Organization Details Last Updated DateTime 4 157.48 cm 44.8 kg/m2 077217. 13 g 90 /min 98 % 98 % 16 /min 0 118/78 mm[Hg] Pradeep Richard [place] - [facility] 4 13:41:56 Date Recorded Body height Body mass index (BMI) Body weight Heart rate Body temperature Oxygen saturation Oxygen saturation in Arterial blood by Pulse oximetry Respiratory rate Systolic And Diastolic Provider Name and Address Organization Details Last Updated DateTime 4 157.48 cm 45.2 kg/m2 434742. 32 g 108 /min 97.1 [degF] 98 % 98 % 18 /min 116/80 mm[Hg] Concepcion melton [place] - [facility] 11/12/202 4 11:41:41 Date Recorded Body height Body mass index (BMI) Body weight Body temperature Heart rate Oxygen saturation Oxygen saturation in Arterial blood by Pulse oximetry Respiratory rate Pain severity - 0-10 verbal numeric rating [Score] - Reported Systolic And Diastolic Provider Name and Address Organization Details Last Updated DateTime 4 157.48 cm 45.1 kg/m2 729763. 52 g 98 [degF] 113 /min 98 % 98 % 20 /min 0 122/88 mm[Hg] Denise Nieves [place] - [facility] 4 15:09:32 Social History Question Answer Notes LastModified by Organizat ion Details LastModified Time Tobacco Smoking Status Never Smoker Shannon Hong [place] - [facility] 08/23/2016 11:01:34 Able To Swim? Yes Information not available 08/23/2016 Do You Have An Advance Directive? No Information not available 11/16/2017 Do You Wear A Helmet When Biking? No Information not available 08/23/2016 Are You Blind Or Do You Have Difficulty Seeing? No Information not available 08/23/2016 Is Blood Transfusion Acceptable In An Emergency? Yes Information not available 11/16/2017 What Is Your Level Of Caffeine Consumption? Occasional Information not available 11/16/2017 How Much Tobacco Do You Chew? None [email or web address] Information not available 06/28/2017 In The 14 Days Before Symptom Onset, Have You Had Close Contact With A Laboratory-confir med COVID-19 While That Case Was Ill? No Information not available 07/18/2022 In The 14 Days Before Symptom Onset, Have You Had Close Contact With A Person Who Is Under Investigation For COVID-19 While That Person Was Ill? No Information not available 07/18/2022 Have You Been To An Area Known To Be High Risk For COVID-19? No Information not available 07/18/2022 Are You Deaf Or Do You Have Serious Difficulty Hearing? No Information not available 08/23/2016 What Type Of Diet Are You Following? REGULAR Information not available 08/23/2016 Which Illicit Or Recreational Drugs Have You Used? Denies Information not available 11/16/2017 Have You Processed Blood Or Body Fluids From An Ebola Virus Disease Patient Without Appropriate PPE? No Information not available 07/18/2022 Do You Reside In Or Have You Traveled To An Area Where Ebola Virus Transmission Is Active? No Information not available 07/18/2022 What Is The Highest Grade Or Level Of School You Have Completed Or The Highest Degree You Have Received? [id number] [email or web address] Information not available 07/21/2021 Have There Been Any Changes To Your Family Or Social Situation? No Information no t available 07/18/2022 Hard Of Hearing Or Deaf In One Or Both Ears? No Information not available 08/23/2016 Have You Recently Or Are You Planning To Travel To An Area With Zika Virus? No Information not available 07/18/2022 Legally Blind In One Or Both Eyes? No Information no t available 08/23/2016 Live Alone Or With Others? With Others Information not available 08/23/2016 Latex Allergy No [email or web address] Information not available 07/21/2021 Last Menstrual Period? 09/22/2022 [email or web address] Information not available 03/30/2023 Do You Have A Medical Power Of Business Programmer? No Information not available 07/18/2022 What Was The Date Of Your Most Recent Tobacco Screening? 04/29/2024 [email or web address] Information not available 04/29/2024 How Many Children Do You Have? 1 Information not available 07/18/2022 What Is Your Relationship Status? Single Information not available 08/23/2016 Seat Belts Used Routinely Yes Information not available 08/23/2016 Are You Sexually Active? Yes Information not available 08/23/2016 Smoke Alarm In Home Yes Information not available 08/23/2016 Do You Have Smoke And Carbon Monoxide Detectors In Your Home? Yes Information not available 07/18/2022 Are You Passively Exposed To Smoke? No Information no t available 07/18/2022 How Much Tobacco Do You Smoke? No Information not available 09/27/2016 Do You Use Sunscreen Routinely? Yes Information not available 11/16/2017 Has Tobacco Cessation Counseling Been Provided? No [email or web address] Information not available 03/30/2023 How Many Years Have You Smoked Tobacco? 0 Information not available 09/27/2016 Do You Have Difficulty Walking Or Climbing Stairs? No Information not available 08/23/2016 What Contraceptive Method Was Reported At Start Of This Visit? None Information not available 07/18/2022 Was Counseling Provided To Achieve ? Yes Information not available 03/30/2023 Do You Want To Talk About Contraception Or Prevention During Your Visit Today? No - I Am Hoping To Become In The Near Future [email or web address] Information not available 03/30/2023 How Many Years Have You Used E-cigarettes Or Vape? 3 Information not available 07/21/2021 Do You Have Any Future Plans To Get ? Yes, I Want To Become Information not available 03/30/2023 What Is Your Reason For Having No Contraceptive Method At Start Of This Visit? Seeking [email or web address] Information not available 03/30/2023 Sex: Female Functional Status Question Answer Note LastModified by [employer] ion Details LastModified Time Do you use any illicit or recreational drugs? No [email or web address] Information not available 03/30/2023 Do you or have you ever used any other forms of tobacco or nicotine? Yes Information not available 07/21/2021 What is your level of alcohol consumption? None [email or web address] Information not available 06/28/2017 Are you currently employed? No Information not available 08/23/2016 What is your status? Not [email or web address] Information no t available 03/30/2023 Are you able to walk? [email or web address] Information not available 11/16/2017 Do you have difficulty doing errands alone? No Information not available 08/23/2016 Are you able to care for yourself? Yes Information not available 08/23/2016 What is your occupation? unemployed Information not available 11/16/2017 Do you have difficulty dressing or bathing? No Information not available 08/23/2016 Do you or have you ever used e-cigarettes or vape? Former user of electronic cigarettes [email or web address] Information not available 07/21/2021 What is your exercise level? None Information not available 11/16/2017 Mental Status Question Answer Note LastModified by Organizat ion Details LastModified Time Do you feel stressed (tense, restless, nervous, or anxious, or unable to sleep at night)? [id number] Information not available 07/18/2022 Do you have difficulty concentrating, remembering or making decisions? No Information no t available 08/23/2016 Family History Relationship Description Onset Age of this Age Resolved Age Notes LastModified by Organization Details LastModified Time Unspecified Relation Depressive disorder Not available 2016 11:00:38 Paternal Grandfather Type 2 diabetes mellitus Not available 2016 11:01:03 Maternal Grandmother Type 2 diabetes mellitus Not available 2016 11:01:03 Maternal Grandmother Malignant tumor of breast 37 initia lly age 37, then recurr ence in her 50s [email or web address] Not available 03/30/2023 10:48:45 Paternal Grandmother Type 2 diabetes mellitus Not available 2016 11:01:03 Father Hyperlipidem ia Not available 2016 11:01:14 Father Hypertensive disorder Not available 2016 11:01:22 Medical History Condition Response Pancreatitis N Other N Atrial Fibrillation N congenital heart disease N Blood Diseases N Hyperthyroidism N Rheumatoid arthritis N Blood Transfusion N Erectile Dysfunction N amputation N Skin Lesions N Depression N Pneumonia N Incontinence N Murmur N Edema N Alzheimer's Disease N Migraine Headaches N Tobacco Abuse N Anxiety Disorder N Hemorrhoids N Obesity Y Vision or Eye Problems N Arthritis N Restless Leg Syndrome N Polyps N Infertility N Carpal Tunnel N Acid Reflux (GERD) N Cancer N Varicosities N Stroke N Tendonitis N Crohn's Disease N Hypercholesterolemia N Skin Cancer N Headaches N Fibromyalgia N Irritable Bowel Syndrome N Anal Fissure N Kidney Disease N Heart Problems N Hospitalizations N Gallstones N Kidney or Bladder Problems N Goiter N Acne N Eating Disorder N Huff's Esophagus N Hypertriglyceridemia N Constipation N Embolism N Vitamin B12 Deficiency N Deviated Septum N AIDS/HIV N Myocardial Infarction N Asthma N Mitral Valve Disorders N Vertigo N Hepatitis N Thyroid Cancer N Neuropathy N History of DVT N Herniated Disc N Chicken Pox N Autism Spectrum Disorder (ASD) N Von Willebrands Disease N Thrombophilias N Breast Cancer N Hernia N Plantar Fasciitis N Hypothyroidism N Lung Disease N Defects or Inherited Disease N Breast Problem N Ovarian Cyst N Anesthesia Complications N Testosterone Deficiency N Interstitial Cystitis N Congenital Anomalies N Hypoglycemia N Blood clot N Vitamin D Deficiency N Cellulitis N Endometriosis N Bladder or Kidney Problems N Fracture N Colorectal Cancer N Panic Disorder N Schizophrenia N Concussion N Spina Bifida N Osteoarthritis N Parkinson's Disease N Disc Protrusion N STI N Esophagitis N Angina N Thyroid Problems N GI Problems N ADD/ADHD N Anemia N Multiple Sclerosis N Abnormal PAP N Lumbago N Mental Illness N Psychiatric Illness N Diabetes N Ovarian Cancer N Degenerative Disc Disease N Seizures/Epilepsy N Hyperlipidemia N Syncope N Insomnia N Eczema N Abuse/Domestic Violence N Attention Deficient Disorder N Dementia N Ulcerative colitis N Cerebrovascular Disease N Depression N Guillain-Fulton N Sleep Apnea N Aneurysm N Bronchitis N Heart Disease N Hypertension N Pre-Eclampsia N Suicidal Ideation N Osteoporosis N Gynecological History Statement/Question Response Flow Heavy Date of LMP 12/26/2023 STIs/STDs N Duration of Flow (days) 4 Current Control Method Seeking Pre gnancy Age at Menarche 10 Last Annual Exam/Provider 11/30/2021 OBPE Frequency of Cycle (Q days) Sexually Active? Y Date of Last Cervical Culture 08/02/2021 Menses Monthly N Date of Last Pap Smear 08/02/2021 Sexual Problems? N LMP Definite Desired Control Method Seeking Pre gnancy Obstetrics History GPAL:G 2 P 0 1 1 1 Type Value Spontaneous 1 Premature 1 Living 1 Total 2 Immunizations Vaccine Type Date Status Note Provider Jarek milligan and Address Organization Details Recorded Time DTaP 0 completed Gladys [place] null, [place] - [facility] 03/30/2023 10:16:55 DTaP 0 completed Gladys [place] - [facility] 03/30/2023 10:16:55 DTaP 1 completed Glad[place] - [facility] 03/30/2023 10:16:55 DTaP 2 completed Glad[place] [facility] 03/30/2023 10:16:55 DTaP 4 completed Gladys Moncada [place] [facility] 11/17/2023 10:45:09 Hib (PRP-OMP) 0 completed Glad[place] [facility] 03/30/2023 10:16:55 Hib (PRP-OMP) 0 completed Glad[place] [facility] 03/30/2023 10:16:55 Hib (PRP-OMP) 0 completed Glad[place] [facility] 03/30/2023 10:16:55 Hib (PRP-OMP) 1 completed Glad[place] [facility] 03/30/2023 10:16:55 Hep B, adolescent or pediatric 1 completed Glad[place] [facility] 03/30/2023 10:16:55 Hep B, adolescent or pediatric 2 completed Glad[place] [facility] 03/30/2023 10:16:55 Hep B, adolescent or pediatric 2 completed Glad[place] [facility] 03/30/2023 10:16:55 IPV 0 completed Glad[place] [facility] 03/30/2023 10:16:54 IPV 0 completed Glad[place] [facility] 03/30/2023 10:16:54 IPV 4 completed Not Available [facility] 03/13/2016 13:23:10 MMR 1 completed Glad[place] [facility] 03/30/2023 10:16:54 MMR 2 completed [place] [facility] 03/30/2023 10:16:54 varicella 1 completed Glad[place] [facility] 03/30/2023 10:16:54 varicella 1 completed Glad[place] [facility] 03/30/2023 10:16:55 meningococcal MCV4P 1 completed Glad[place] [facility] 03/30/2023 10:16:55 HPV, unspecified formulation 1 completed Glad[place] [facility] 03/30/2023 10:16:55 Tdap 1 completed Glad[place] [facility] 03/30/2023 10:16:54 IPV 0 completed Gladys Dillon null, [place] - [facility] 03/30/2023 10:16:54 Tdap 2 completed Infusion Nurse [facility] [address], [place], [address], [place] [facility] 11/30/2021 13:46:08 Rho(D) -IG IM 2 completed Gladys [place] null[place] [facility] 03/30/2023 10:16:54 DTaP, unspecified formulation 4 completed Gladys Moncada null[place] [facility] 11/17/2023 10:45:09 Past Encounters Encounter ID Performer Location Encounter Start Date Encounter Closed Date Diagnosis/Indication Diagnosis SNOMED-CT Code Diagnosis ICD10 Code Diagnosis Note [id number] [facility] [address] [place] [address] 12/02/2009 00:00:00 [id number] [facility] [address] [place] [address] 02/02/2010 00:00:00 [id number] [facility] [address] [place] [address] 07/14/2010 00:00:00 [id number] [facility] [address] [place] [address] 02/24/2011 00:00:00 [id number] [facility] [address] [place] [address] 03/07/2011 00:00:00 [id number] [facility] [address] [place] [address] 06/09/2011 00:00:00 [id number] [facility] [address] [place] [address] 06/27/2011 00:00:00 [id number] [facility] [address] [place] [address] 08/04/2011 00:00:00 [id number] [facility] [address] [place], [place] [address] 01/23/2013 00:00:00 [id number] [facility] [address] [place] [address] 02/08/2013 00:00:00 [id number] [facility] [address] [place] [address] 03/13/2013 00:00:00 [id number] [facility] [address] [place] [address] [address] 03/25/2013 00:00:00 [id number] [facility] [address] [place] [address] 04/26/2013 00:00:00 [id number] [facility] [address] [place] [address] 06/18/2013 00:00:00 [id number] [facility] [address] [place] [address] 2009 00:00:00 [id number] [facility] [address] [place] [address] 12/02/2009 00:00:00 [id number] [facility] [address] [place] [address] 02/27/2014 00:00:00 [id number] [facility] [address] [place] [address] 04/25/2014 00:00:00 [id number] [facility] [address] [place] [address] 06/18/2013 00:00:00 [id number] [facility] [address] [place] [address] 07/24/2013 00:00:00 [id number] [facility] [address] [place] [address] 09/12/2013 00:00:00 [id number] [facility] [address] [place] [address] [place] [address] 11/06/2013 00:00:00 [id number] [facility] [address] [place] [address] 02/19/2014 00:00:00 [id number] [facility] [address] [place] [address] [address] 08/04/2011 00:00:00 [id number] [facility] [address] [place] [address] [address] 01/12/2012 00:00:00 [id number] [facility] [address] [place] [address] [address] 03/22/2012 00:00:00 [id number] [facility] [address] [address] [address] 04/06/2012 00:00:00 [id number] [facility] [address] [place] [address] [address] 08/01/2012 00:00:00 [id number] [facility] [address] [place] [address] 10/01/2012 00:00:00 [id number] [facility] [address] [place] [address] 01/23/2013 00:00:00 [id number] [facility] [address] [place] [address] 04/28/2014 00:00:00 [id number] [facility] [address] [place] [address] 05/05/2014 00:00:00 [id number] [facility] [address] [place] [address] [address] 07/15/2014 00:00:00 [id number] [facility] [address] [place] [address] [address] 08/04/2014 00:00:00 [id number] [facility] [address] [place] [address] 09/03/2014 00:00:00 [id number] [facility] [address] [place] [address] 09/18/2014 00:00:00 [id number] [facility] [address] [place] [address] 10/03/2014 00:00:00 [id number] [facility] [address] [place] [address] 01/21/2015 00:00:00 [id number] [facility] [address] [place] [address] 01/21/2015 00:00:00 [id number] [facility] [address] [place] [address] 02/02/2015 00:00:00 [id number] [facility] [address] [place] [address] 02/05/2015 00:00:00 [id number] [facility] [address] [place] [address] 03/05/2015 00:00:00 [id number] [facility] [address] [place] [address] 03/31/2015 00:00:00 [id number] [facility] [address] [place] [address] 04/17/2015 00:00:00 [id number] [facility] [address] [place] [address] 01/12/2016 00:00:00 [id number] Jazmin Antunez APRN [facility] [address] [address] 08/23/2016 10:53:38 08/23/2016 17:55:22 Influenza [id number] J11.1 Otitis media 54810521 H6 6.93 Pansinusitis 236567134 J 32.4 [id number] Jazmin Antunez [address] [place] [address] 12/14/2016 15:13:36 12/14/2016 16:36:01 Upper respiratory infection 29297118 J06.9 Pharyngitis 792115236 J0 2.9 [id number] ROLDAN Somers [employer] [address] [place] [address] [place]gs [address] 11/16/2017 15:14:45 11/16/2017 16:02:39 Abnormal uterine bleeding 6590894064 9100 N93.9 Pain in pelvis 60671597 R10.2 Increased frequency of urination 290200525 R35.0 Venereal d isease screening 863563185 Z11.3 [id number] ROLDAN Somers [employer] [address] [place] [address] [place] [address] 02/01/2018 13:22:00 02/01/2018 14:38:15 Initiation of depot contraception done [id number] 50970 Z30.132 [id number] ROLDAN Somers [employer] [address] [place] [address] [place] [address] 04/25/2018 16:14:47 04/25/2018 16:22:35 Contraception care management 262419325 Z30.9 [id number] Maury Gonzalez MD [address] [address] 06/08/2018 14:48:15 06/08/2018 15:31:58 Body mass index 40+ - severely obese 460490165 Z68.41 Dysuria 84949159 R30.0 Acute urin julianna tract infection 109897712 N39.0 Patellofem oral stress syndrome 738619966 M22.2X9 [id number] Brigitte Peña[place] [address] [place] [address] 06/29/2018 11:09:23 06/29/2018 12:40:32 Pruritic rash 82507770 L28.2 [id number] Marisol [address] [address] 07/31/2018 13:37:45 07/31/2018 14:39:41 Headache 55048156 R51 Nausea 202722991 R11.0 Essential hypertension 01355244 I10 Body mass index 40+ - severely obese 015401817 Z68.41 [id number] Marisol Kelley[address] [place] [address] 08/31/2018 15:50:56 08/31/2018 16:26:41 Fever 767482709 R50.9 Influenza [id number] J11.1 Acute otitis media 61413 03 H66.91 [id number] Jazmin Antunez[address] [place] [address] 02/10/2021 13:20:40 02/10/2021 13:57:24 Viral screening 625958343 Z11.52 COVID-19 638445919 U07.1 [id number] ROLDAN Somers [employer] [address] [place] [address] [place] [address] 07/21/2021 13:40:03 07/21/2021 15:19:01 Routine care 715480125 Z34.91 Urine preg carlos test positive 648554412 Z32.01 Maternal o besity complicating , childbirth and the puerperium, antepartum 3415601720 07 O99.211 Gestation period, 16 weeks 95721570 Z3A.16 Primigravida 244536659 Z 34.02 Polycystic ovary syndrome 742758614 E28.2 Irregular periods 942911 07 N92.6 Heartburn 29253454 R12 Nausea 993270335 R11.0 [id number] MD Sukhwinder Beaulieu MANAGER ELECTRONIC [address] [place] [address] GEOVANI Riggs [address] 7 07/23/2021 13:54:33 07/23/2021 15:53:58 Routine care 511103466 Z34.02 screening 2437 77273 Z36.9 nipt today, poss cf next vst, poss afp at 15 + week Gestation period, 12 weeks 14439926 Z3A.12 Maternal o besity complicating , childbirth and the puerperium, antepartum 6209461894 07 O99.194 [id number] Vanessa Hallman, MS, RDN, LDN [place] MA[employer] [address] [place] [address] GEOVANI Riggs [address] 7 08/02/2021 08:25:32 08/02/2021 10:08:54 40312226 Z33.1 [id number] Marya Sarah, [employer] [place] MA[employer] [address] [place] [address] GEOVANI Riggs [address] 08/02/2021 08:25:32 08/02/2021 10:08:54 Hyperinsulinism 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.1 Maternal o besity complicating , childbirth and the puerperium, antepartum 5989649027 07 O99.211 Polycystic ovary syndrome 363202385 E28.2 Primigravida 275784726 Z 34.02 Gestation period, 13 weeks 31909678 Z3A.13 Screening for malignant neoplasm of cervix 862283188 Z12.4 Z11.3 Prediabetes 762201922 R7 3.03 [id number] MD Sukhwinder Cohn MANAGER ELECTRONIC [address] [place] [address] GEOVANI Riggs [address] 7 09/02/2021 15:54:06 09/02/2021 16:28:01 Hyperinsulinism 08867094 E16.1 Maternal o besity complicating , childbirth and the puerperium, antepartum 9259450414 07 O99.212 Polycystic ovary syndrome 793508162 E28.2 screening 2437 74743 Z36.9 Gestation period, 17 weeks 89134901 Z3A.17 High risk 4720 0007 O09.92 [id number] MD Sukhwinder Cohn MANAGER ELECTRONIC [address] [place] [address] GEOVANI Riggs [address] 7 09/23/2021 15:31:15 09/23/2021 16:59:07 Hyperinsulinism 71663259 E16.1 Maternal o besity complicating , childbirth and the puerperium, antepartum 4115098649 07 O99.212 Polycystic ovary syndrome 815575338 E28.2 screening 2437 20831 Z36.9 High risk 4720 0007 O09.92 Gestation period, 20 weeks 30486100 Z3A.20 [id number] Cristiana Woody APRN [place] [employer] [address] [place] [address] [place] [address] 10/21/2021 13:53:41 10/21/2021 14:42:16 Hyperinsulinism 87888488 E16.1 Maternal o besity complicating , childbirth and the puerperium, antepartum 4495219654 07 O99.212 Polycystic ovary syndrome 616196273 E28.2 screening 2437 87210 Z36.9 High risk 4720 0007 O09.92 Gestation period, 24 weeks 940124931 Z3A.24 Heartburn 17497926 R12 The patient provides a history of digestive symptoms most suggestive of acid reflux. Pt has not experience d any recent and unexpected weight gain. Further diagnostic evaluation is not required. Discussed treatment options at this time. Symptoms occur 5+ times per week and typically occur throughout the day. Pt has not started taking any medication s.Recommen ded oral lozenges and chewing gum to promote salivation . Recommende d diet modificati ons, including reducing fatty food, caffeine, spicy food, carbonated beverage intake, to reduce episodes. Pt is willing to adopt diet modificati ons. Recommende d abdominal breathing exercises to strengthen anti-reflu x barrier. Discussed elevating head of the bed and avoiding lying supine after meals. [id number] Marianne Foster MD [place] MA[employer]GER [employer] [address] [place] [address] 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 Maternal o besity complicating , childbirth and the puerperium, antepartum 5083140535 07 O99.212 Polycystic ovary syndrome 503681561 E28.2 High risk 4720 0007 O09.92 screening 2437 22836 Z36.9 Blood grou p A Rh(D) negative 643934719 Z67.11 Gestation period, 28 weeks 73773189 Z3A.28 [id number] Elaina Salinas CNM [place] MANAGER [employer] [address] [place] [address] GEOVANI Riggs [address] 11/30/2021 13:04:48 11/30/2021 13:49:43 screening 531215819 Z36.9 Administra tion of diphtheria, pertussis, and tetanus vaccine 341957355 Z23 Maternal o besity complicating , childbirth and the puerperium, antepartum 7645255611 07 O99.212 Prediabetes 082976307 R7 3.03 Primigravida 342143227 Z 34.02 Gestation period, 30 weeks 64214568 Z3A.30 High risk 4720 0007 O09.93 [id number] Marianne Foster MD [place] MANAGER [employer] [address] [place] [address] GEOVANI Riggs [address] 7 12/17/2021 10:01:03 12/17/2021 11:20:26 Maternal obesity complicating , childbirth and the puerperium, antepartum 9521214267 07 O99.212 Prediabetes 043989516 R7 3.03 High risk 4720 0007 O09.93 Gestation period, 33 weeks 50146901 Z3A.33 Leukocytes in urine 2757 78814 R82.79 Heartburn 12696025 R12 screening 2437 85403 Z36.9 [id number] Marya Sarah APRN [place] MANAGER [employer] [address] [place] [address] GEOVANI Riggs [address] 7 12/22/2021 08:18:04 12/22/2021 12:09:02 History of depression 789578891 Z86.59 Maternal o besity complicating , childbirth and the puerperium, antepartum 0092664352 07 O99.212 Glucose to lerance test outside reference range 274199458 R73.09 High risk 4720 0007 O09.93 Gestation period, 33 weeks 09371707 Z3A.33 Urinary tr act infection in 347172834 O23.43 [id number] DO Diya [place] MANAGER ELECTRONIC [address] [place] [address] GEOVANI Riggs [address] 7 12/27/2021 12:53:26 12/27/2021 13:53:25 Gestation period, 34 weeks 63434983 Z3A.34 High risk 4720 0007 O09.93 History of depression 16 6020395 Z86.59 Maternal o besity complicating , childbirth and the puerperium, antepartum 7178611096 07 O99.212 Pruritic disorder 095609 002 L29.9 [id number] MD Diya [place] MANAGER ELECTRONIC [address] [place] [address] GEOVANI Riggs [address] 7 12/28/2021 14:01:22 12/28/2021 15:38:02 Pruritic rash 45332015 L28.2 History of urinary tract infection 7883182431 107 Z87.440 Marginal i nsertion of umbilical cord 32748552 O43.129 Body mass index 40+ - severely obese 440720294 Z68.42 High risk 4720 0007 O09.93 screening 2437 50398 Z36.9 Blood grou p O Rh(D) negative 119729738 Z67.41 Gestation period, 34 weeks 32196805 Z3A.34 Reduced fe armando movement 009251569 O36.8199 [id number] Elaina Salinas CNM [place] MANAGER ELECTRONIC [address] [place] [address] GEOVANI Riggs [address] 7 07/18/2022 10:29:39 07/18/2022 11:37:00 screening 091952232 Z36.9 Vaginal bl eeding complicating early 696157696 O20.9 Blood grou p A Rh(D) negative 602565053 Z67.11 Threatened miscarriage in first trimester 65815123 O20.0 [id number] ROLDAN Ferreira MANAGER ELECTRONIC [address] [place] [address] GEOVANI Riggs [address] 7 07/19/2022 14:46:42 07/19/2022 15:53:36 Miscarriage 66934245 O03.9 [id number] DO Diya [place] MANAGER ELECTRONIC [address] [place] [address] GEOVANI Riggs [address] 7 07/27/2022 15:16:40 07/27/2022 16:14:36 Miscarriage 49735714 O03.9 Quant is <1 today. No further follow up needed. Patient declined control. [id number] ROLDAN Somers MANAGER ELECTRONIC [facility] [facility] GE[place] Riggs [address] 03/30/2023 09:54:36 03/30/2023 11:04:13 Vaginal irritation 287969715 N89.8 Amenorrhea 78097848 N91. 2 Polycystic ovary syndrome 864918927 E28.2 Hyperlipid emia screening 893574914 Z13.997 [id number] Any Tyler [address] [place] [address] 11/07/2023 14:23:40 11/07/2023 14:58:05 Tinea corporis 18241552 B35.4 Body mass index 40+ - severely obese 554787938 Z68.42 Morbid obesity 246973271 E66.01 [id number] Any Tyler [address] [place] [address] 11/16/2023 10:00:11 11/16/2023 10:43:12 General examination of patient 700480616 Z00.00 Screening for cardiovascular system disease 013250157 Z13.6 Endocrine/ metabolic screening 105708786 Z13.228 Exercises education, guidance, and counseling 793663259 Z71.82 The patient was advised to continue a healthy diet and exercise regularly. Dietary ma nagement surveillance 268265907 Z71.3 Hyperinsulinism 03409557 E16.1 Body mass index 40+ - severely obese 397037709 Z68.42 Morbid obesity 754803576 E66.01 [id number] Doug Corrales MD [address] [place] [address] 11/17/2023 10:18:02 11/17/2023 11:30:21 Body mass index 40+ - severely obese 205144624 Z68.42 Pt will look at medical interventi on vs medically supervised diet prior to interventi on Morbid obesity 639270593 E66.01 [id number] Doug Corrales MD [address] 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 [address] 12/26/2023 14:20:57 12/26/2023 14:59:42 Body mass index 40+ - severely obese 253173217 Z68.42 Pt will look at medical interventi on vs medically supervised diet prior to interventi on [id number] Doug Corrales MD [address] 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 [address] 02/01/2024 13:37:21 02/01/2024 14:19:33 Body mass index 40+ - severely obese 152397055 Z68.41 Pt will look at medical interventi on vs medically supervised diet prior to interventi on Neck pain 39473417 M54.2 Pt requests new referral [id number] Doug Corrales MD [address] [place] [address] 04/16/2024 11:32:45 04/16/2024 11:58:36 Pharyngitis 000562098 J02.9 [id number] Any Tyler APRN [address] [place] [address] 04/29/2024 14:54:43 04/29/2024 16:05:24 Visual disturbance 97494719 H53.9 Educated on s/s that indicate need for immediate evaluation in the ED. Patient verbalized understand ing. Headache 51644007 R51.9 Transition of care from emergency department to self-care 3757417939 89273 Z76.89 [id number] Any Tyler APRN [facility] [address] [place] [address] 09/30/2024 11:17:13 09/30/2024 11:44:54 Pain of knee region 6788912034 M25.561 Patient was instructed to restrict activity, with goal to reduce swelling and pain. Mild injury to be treated at home with anti-infla mmatory and/or pain medication and GIL (Protect from further injury, Rest, Ice for 15-20 min every 60-90 min, Compressio n with elastic bandage, Elevation to prevent swelling.) Body mass index 40+ - severely obese 731856856 Z68.42 Health Concerns Section Related Observation LastModified by Organization Detai ls LastModified Time None Recorded Concern Status LastModified by Organization Details LastModified Time None Recorded Advance Directives Directive N: Payers Insurance Date Sequence Insurance Name Policy Number Policy Valenzuela Covered Member ID Valenzuela Member ID Guarantor Name 07/19/2022 1 [id number] Amparo Petty [id number] Amparo Petty 04/25/2018 1 UMR [id number] Andry Petty [id number] Amparo Petty 12/03/2024 [id number] Amparo Fox Petty [id number] Amparo Petty 12/23/2024 1 [id number] Amparoyvonne Coombse [id number] Amparo Petty 02/10/2021 1 *SELF PAY* Venecia Petty 07/19/2022 [id number] Amparo Fox Petty [id number] Amparo Petty 07/19/2022 2 UMR (PPO) Amparo Petty [id number] Amparo Petty 02/09/2024 [place] [facility] [id number] [id number] Amparo Petty 09/30/2024 1 [id number] Amparo Petty [id number] Amparo Petty 07/19/2022 1 [employer] [place] [employer] [place] Amparo Petty [id number] Amparo Petty Notes Date Note Type Note Provider Name and Address Organization Details Recorded Time 01/08/2024 text/html ROS as noted in the HPI Pt presents for f/u depression/anxiety and support animal PW. Pt with hx of depression/anxiety; denies any significant mood changes. No worsening depression, spikes of anxiety, denies sleep/appetite/GI alterations, Stable with current regimen. Not currently following with counseling. Doug Corrales MD [address] [facility], [place], [address], [place] - [facility] 01/08/2024 19:02:55 02/01/2024 text/html Patient present today for follow up regarding weight loss. Current weight loss approximately 8lbs.BMI today is 44.8. Extensive discussion with Pt about the effects of weight on overallhealth, libra joint pain and DM2. Discussed basic nutrition facts, meal planning and how todesign a graduated exercise plan to accommodate joint pain. Pt understanding and agreeable. Doug Corrales MD [address], [place], [address], [facility] - [facility] 02/01/2024 17:48:28 04/16/2024 text/html ROS as noted in the HPI Pt presents for 3-5 days of worsening cough (mostly dry, occasionally productive of jamil sputum, no hemoptysis), associated congestion and sore throat. Pt endorses subjective fevers and chills, intermittent wheezing and SoB but denies arthralgias, diarrhea, rashes, lymphadenopathy. Pt is not a smoker. States did get Flu and Covid vaccs; endorses multiple sick contacts. Doug Corrales MD [address], [place], [address], [employer] - [facility] 04/16/2024 18:29:14 04/29/2024 text/html Emergency Depart ment Follow-Up RecordReported by PatientEmergency Room Follow-Up RecordFor discharge information, patient reportsname of hospital/urgent care patient was seen: ([facility]),patient presented to hospital/urgent care on or around: actual date 04/23/24,patient presented to hospital for treatment of: (nosebleed),treatment received by hospital/urgent care: (chest x-ray performed with normal result. afrin drops administered),patient' s condition has: improved, andhospital records available at the time of this visit: yes.Patient reports headache and intermittent pain under left eye x 6 days. Patient reports pain radiates up into scalp. Patient states when they pain occurs she lost her vision in left eye. Denies nasal congestion, dizziness, fever, chest pain, SOA, syncope, and n/v/d.ROS as noted in the HPI Any Tyler APRN [address], [place], [address], [facility] 04/29/2024 17:57:21 09/30/2024 text/html ROS as noted in the HPI Patient presents with c/o right knee pain x 5 days. Patient reports pain began after she was doing a handstand, fell, and hit her knee on the floor. Patient reports pain is 6/10 at best and 9/10 at worst. Patient reports pain is constant but worsens when she straightens her leg.Denies paresthesias, fever, chest pain, SOA, and n/v/d. Any Tyler APRN [address], [place], [address], [employer] - [facility] 09/30/2024 11:43:43 OBGyn Episode Ob Episode Information Episode Created Date Number of Fetuses Patient Bloodtype Patient rh Status Prepregnancy Weight lbs Domestic Partner Domestic Partner Phone Father Name Lan/Wan Engineer Status 03/30/20 23 1 CLOSED Fetus Data First Name Last Name Admitted to NICU Weight (g) Sex Living Outcome Pediatric Complications Fetus ID Race Codes Race Delivery Type , Spontane ous Yuniel Calculation Initial Yuniel Date Initial Exam Date Initial Exam Provider Initial Ultrasound Date Last Menstrual Period Date Ultra Sound Weeks Gestation 0 Eighteen To Twenty Week Yuniel Update Ultra Sound Date Fundal Height At Umbil Quickening Date Ultra Sound Latest Weeks Gestation Final Yuniel Confirmed By Final Yuniel Confirmed Date Final Yuniel Date Ultra Sound Latest Days Gestation 0 0 Menstrual History Last Menstrual Date Menses Monthly On Bcp Conception Prior Menses Frequency Hcg Plus Date Menarche Onset Age Delivery Information Delivery Date Delivery Type Labor Anesthesia Weeks Gestation Incision Type Labor Labor Length Hrs Delivered By Post Complications Tubal Sterilization Discharge Date Comments 3 1-2 wks; highest beta was 84 Discharge Information Feeding Method Contraceptive Method Maternal HG B and HCT Levels Ob Episode Information Episode Created Date Number of Fetuses Patient Bloodtype Patient rh Status Prepregnancy Weight lbs Domestic Partner Domestic Partner Phone Father Name Lan/Wan Engineer Status 07/20/19 22 1 A Negative 250 Denilson Benedic t age 23 Brigitte Ornelas [employer] CLOSED Fetus Data First Name Last Name Admitted to NICU Weight (g) Sex Living Outcome Pediatric Complications Fetus ID Race Codes Race Delivery Type 2270.81 [id number] F true Prematur e 94273 Vaginal Problems Problem Notes [place] to breastfeed, [facility]/Brigitte Ornelas APRNUTI: 33 wks: P. Rettgeri, E. Coli, E. Faecalis. Rx Bactrim & Amoxicillin, and to start Keflex 500mg PO daily for suppression after completes AT urine culture[ ] weekly urine cultureUltrasounds:07/23/21 LMP unknown. u/s today 12 week 0 days EDC : GA/WILLIAM: female, AGA, complete. CL reassuring. PCI is 0.72cm from edge of placenta at UUS c/w Marginal cord insertion. Plan repeat US at 28 weeks for growth/URI. Also would like repeat images of spine at that visit as they were somewhat limited/KRA11/15/21: EFW 1220gm 51%tile, URI 14cm, spine images normal/KRA12/17/21: EFW 2203gm 53%tile AC 87.8%tile, URI 17cm, vtx, posterior/KRA[ ] 36 wks Problem Name Start Date End Date Resolution Snomed Code Not e Urinary tract infection in 275327554 3 BACTERIA--see below Contraception care 125030551 P shannon patch? Itching of skin 139701627 rx d iphenhydramine and triamcinalone givenbile acids/LFTs obtained Impaired glucose tolerance in 513575982 1 hour 149[x] 3 hour-nml; FBS 77, 1hr 125, 2hr 130, 3hr 150 RhD negative 357908183 Rhogam given 11/15[x] Ab screen negative Marginal insertion of umbilical cord 29124527 [ ] q 4 wk growth/URI US @ 28 wk Immunization due 836058298 [-] Flu-declines[-] Covid-declines [x] Tdap-11/30/21 screening 535889643 [-] CF-ask at obpe-declines[x] MaternIT-- 46XX[x] AFP negative Maternal obesity complicating , childbirth and the puerperium, antepartum 07/21/2021 268210914470 BMI 45.7, h/o [id number] @ Hx 5.3%[x] Early 1hr GTT-131;[x] Nutrition Referral-08/02/21[x] Baby ASA Nausea 07/21/2021 428280352 B6 25mg T ID History of depression 07/21/2021 716405900 was medicated a TotalHousehold 12-13; MobiTX med, no current concerns Heartburn 07/21/2021 02750896 Famotidin e 20mg BID Yuniel Calculation Initial Yuniel Date Initial Exam Date Initial Exam Provider Initial Ultrasound Date Last Menstrual Period Date Ultra Sound Weeks Gestation 02/04/2022 07/21/2021 [email or web address] 07/23/2021 03/27/2021 12 Eighteen To Twenty Week Yuniel Update Ultra Sound Date Fundal Height At Umbil Quickening Date Ultra Sound Latest Weeks Gestation Final Yuniel Confirmed By Final Yuniel Confirmed Date Final Yuniel Date Ultra Sound Latest Days Gestation 09/24/19 22 20 [email or web address] 07/23/2021 02/05/20 22 2 Pre-sheila Flowsheet Flowsheet Date 07/21/2021 Ford Score Blood Edema Fundus Height Fundus Units Glucose Ketones Leukocytes Nitrite Labor Signs Protein Cervic Dilation Cervic Effacement Cervic Station neg trace none negative 2+ Negative 1+ Type Weight in lbs Pre/Post Dialysis Refused With clothes 250.679126017991 BP Diastolic BP Location Tested BP Systolic BP Type 80 112 sitting Fetus Heart Rate Present Fetus Movement Comments ob confirmation/hx, c/o naus ea/fatigue, heartburn requesting medication, trace leuks, neg nits, no lof, no vb.JRMHx rev'd; unsure of dates-had spotting in May x 1 day; beta/prog drawn; plan dating US ZOIE; disc nausea and heartburn-req rx; declines chromosomal screenings; disc h/o PCOS and prediabetes-plan early 1hr and nutritional counseling; sister was on insulin for GDM; rx PNV sent; no further q/c; rto for dating US/dgt Flowsheet Date 07/23/2021 Ford Score Blood Edema Fundus Height Fundus Units Glucose Ketones Leukocytes Nitrite Labor Signs Protein Cervic Dilation Cervic Effacement Cervic Station neg none none large none Negative neg Type Weight in lbs Pre/Post Dialysis Refused Weight 248.834425633887 BP Diastolic BP Location Tested BP Systolic BP Type 72 112 Fetus Heart Rate Present A Present Fetus Movement Comments No vb, no lof, neg leuk, neg nits, mild cramps, some constipation. Wants to see about getting the MaternIT 21 for the gender//BW dating ultrasound set yuniel unsure LMP/oligomenorrhea has noticed nausea improvement with initial B6 dose. disc rf of obesity and needs early gtt, start as 81 mg now; Discussed screening options. Interested in NIPT- sent,(wants gender concealed in envelope next visit) sent today; still thinking about afp and cf- discuss at next visit/rto next avail for obpe/llc Flowsheet Date 08/02/2021 Ford Score Blood Edema Fundus Height Fundus Units Glucose Ketones Leukocytes Nitrite Labor Signs Protein Cervic Dilation Cervic Effacement Cervic Station neg none 13 wks none negative none Negative none neg 0cm 0% Type Weight in lbs Pre/Post Dialysis Refused With clothes 249.964157116122 BP Diastolic BP Location Tested BP Systolic BP Type 84 128 sitting Fetus Heart Rate Present A 158 Fetus Movement Comments early 1 hr gtt, obp, neg ajit ks, neg nits, no lof, no vb, does not want CF testing or any additional genetic testing, questions regarding episode of increased HR of 128, while checking glucose level, no other concerns or issues.JRMOBPE unremarkable; early 1hr gtt; declines CF; ? flutters; has visit with cabinetmaker maintenance today; no other q/c; rto 4 wks for routine OV/dgt Flowsheet Date 08/02/2021 Ford Score Blood Edema Fundus Height Fundus Units Glucose Ketones Leukocytes Nitrite Labor Signs Protein Cervic Dilation Cervic Effacement Cervic Station Type Weight in lbs Pre/Post Dialysis Refused BP Diastolic BP Location Tested BP Systolic BP Type Fetus Heart Rate Present Fetus Movement Comments Flowsheet Date 09/02/2021 Ford Score Blood Edema Fundus Height Fundus Units Glucose Ketones Leukocytes Nitrite Labor Signs Protein Cervic Dilation Cervic Effacement Cervic Station neg none none large none Negative Cramping neg Type Weight in lbs Pre/Post Dialysis Refused With clothes 250.634042081825 BP Diastolic BP Location Tested BP Systolic BP Type 82 126 sitting Fetus Heart Rate Present A Present Fetus Movement A No Comments nfm, no lof, reports spottin g 3-4d ago, cramping, and occasional feelings of dizziness and seeing spots - MERARI///No mention of spotting to me--did report seeing spots referring to her vision. Discussed large ketones. Suggested she may be dehydrated and encouraged working on hydration with H20. Also discussed eating small protein packed meals between main meals in case of low blood sugar. She agrees to try. Return in 3 wk for GA/WILLIAM. Does want AFP today. KRA Flowsheet Date 09/23/2021 Frod Score Blood Edema Fundus Height Fundus Units Glucose Ketones Leukocytes Nitrite Labor Signs Protein Cervic Dilation Cervic Effacement Cervic Station neg none negative none Negative neg Type Weight in lbs Pre/Post Dialysis Refused Weight 252.766943119177 BP Diastolic BP Location Tested BP Systolic BP Type 82 118 Fetus Heart Rate Present A 147 Present Fetus Movement A Yes Comments No vb, no lof, neg leuk, neg nits, c/o left lower back pain.//BW///No CVA TTP on exam. UA WNL. Discussed remedies for back pain with patient. GA/WILLIAM today shows female fetus. Complete. There is a marginal cord insertion at the upper part of left lateral placenta. Discussed serial growth US starting at 28 weeks. Will also plan repeat spine images at that time as upon review they are somewhat limited. CL reassuring. Return in 4 wk for routine visit. KRA Flowsheet Date 10/21/2021 Ford Score Blood Edema Fundus Height Fundus Units Glucose Ketones Leukocytes Nitrite Labor Signs Protein Cervic Dilation Cervic Effacement Cervic Station neg trace 27 none large none Negative neg Type Weight in lbs Pre/Post Dialysis Refused With clothes [id number] BP Diastolic BP Location Tested BP Systolic BP Type 68 120 sitting Fetus Heart Rate Present A 144 Fetus Movement A Yes Comments afm, no lof, no vb-ct//Amparo presents today for an OB visit @ 24 wks. States AFM and denies VB and LOF. Complaining of daily heartburn and is not taking any OTC medication. Discussed diet and lifestyle mofications as well as ok to take TUMS. No other Q/C. F/U 3-4 wks with 1 hr and US for growth and URI. Flowsheet Date 10/30/2021 Ford Score Blood Edema Fundus Height Fundus Units Glucose Ketones Leukocytes Nitrite Labor Signs Protein Cervic Dilation Cervic Effacement Cervic Station Type Weight in lbs Pre/Post Dialysis Refused BP Diastolic BP Location Tested BP Systolic BP Type Fetus Heart Rate Present Fetus Movement Comments L&D visit-C/O pain in upper back across mid and lower abd Q 30 minutes while working [employer]. She thinks she was leaking some fluid. Cat 1 tracing. Lockney quit, abd soft NT. Cx LTC, posterior. Amnisure negative, FFN-negative. Wet mount negative. Pain has resolved with rest. Reassured. RH Flowsheet Date 11/15/2021 Ford Score Blood Edema Fundus Height Fundus Units Glucose Ketones Leukocytes Nitrite Labor Signs Protein Cervic Dilation Cervic Effacement Cervic Station neg none negative none Negative neg Type Weight in lbs Pre/Post Dialysis Refused With clothes 257.586199852364 BP Diastolic BP Location Tested BP Systolic BP Type 76 118 sitting Fetus Heart Rate Present A 144 Present Fetus Movement A Yes Comments Pt states no VB, no LOF, no CTX. Pt states doesn't always feel baby move. 1 hr GTT today. //EV//Growth today AGA, normal fluid. Spine images seen and normal. FOB asking if MCI resolves. Discussed it will not, and plan q4hr growth/URI. No VB, LOF, cramping. Good FM. Rhogam given. Ab screen collected. Return in 2 wk with TDAP. KRA Flowsheet Date 11/30/2021 Ford Score Blood Edema Fundus Height Fundus Units Glucose Ketones Leukocytes Nitrite Labor Signs Protein Cervic Dilation Cervic Effacement Cervic Station neg none 32 cm none negative trace Negative none neg Type Weight in lbs Pre/Post Dialysis Refused Weight 259.267989639691 BP Diastolic BP Location Tested BP Systolic BP Type 82 120 sitting Fetus Heart Rate Present A Present Fetus Movement A Yes Comments No vb, lof or unusual d/c. W ants TDAP vaccine today. Aware needs to schedule 3hr, overslept on her other one. mdr//Baby active. She is doing well. TDAP given today. Aware Family members need to UTD also. Needs 3 hr gtt ZOIE then will have US for growth in 2 wks. RH Flowsheet Date 12/17/2021 Ford Score Blood Edema Fundus Height Fundus Units Glucose Ketones Leukocytes Nitrite Labor Signs Protein Cervic Dilation Cervic Effacement Cervic Station neg none negative trace Negative Backpain neg Type Weight in lbs Pre/Post Dialysis Refused Weight 261.73110322986 BP Diastolic BP Location Tested BP Systolic BP Type 86 122 sitting Fetus Heart Rate Present A Present Fetus Movement A Yes Comments no lof, no vb, stated she wa s seen at [facility] last night for back pain and upper abdominal cramping. cb///Amparo has not completed her 3 hour, and came nonfasting today. We discussed that she can start checking blood glucose values QID or complete 3 hour, but discussed needs to do it by Monday of next week as she is already 33 weeks. Discussed growth and AGA. AC is 87.8%tile. Partner concerned that the baby's belly is fat. Discussed that it is still WNL, but that an accelerated AC can show possible GDM. Hopefully will have 3 hour soon! KRA Flowsheet Date 12/22/2021 Ford Score Blood Edema Fundus Height Fundus Units Glucose Ketones Leukocytes Nitrite Labor Signs Protein Cervic Dilation Cervic Effacement Cervic Station neg none 34 cm none small none Negative none neg Type Weight in lbs Pre/Post Dialysis Refused With clothes 266.247592047321 BP Diastolic BP Location Tested BP Systolic BP Type 84 114 sitting Fetus Heart Rate Present A 148 Fetus Movement A Yes Comments Patient is here for 3 hr gtt . She denies any LOF, VB or pain. She states that baby is less active since she started the antibiotics.Here for 3hr; fetus very active after glucola; mother is present-very concerned delivering @ [facility] d/t prior experiences daughter was nearly killed after delivery d/t unmanaged uti d/t ecoli ; See patient case from 12/21/21; pt and mother reassured; pt encouraged to finish entire antibiotic rx as directed; encouraged to drink water and avoid soda/sweet tea/sugary drinks; She was provided a copy of urine culture results and resistance testing; plan to start cephalexin after finishing rx completely; she also spoke with Dr. Foster again today while in the office regarding concerns for delivery @ [facility]; she will rto here in 1 wk/dgt Flowsheet Date 12/27/2021 Ford Score Blood Edema Fundus Height Fundus Units Glucose Ketones Leukocytes Nitrite Labor Signs Protein Cervic Dilation Cervic Effacement Cervic Station neg none negative none Negative neg Type Weight in lbs Pre/Post Dialysis Refused Weight 265.502996282187 BP Diastolic BP Location Tested BP Systolic BP Type 82 126 Fetus Heart Rate Present Fetus Movement A Yes Comments Pt BI today with c/o a rash all over her body.//BWPt states she noticed one spot on abdomen 4 days ago but then rash started on abdomen and spread to back, chest, arms and thighs. States she started abx monday of last week. Has not tried anything for the pruritus. Discussed likely PUPPPs but will obtain liver labs to r/o cholestasis. Gave rx for benadryl and triamcinalone cream. Will call or RTO if symptoms don't improve. RTO in 1 week for recheck. sg Flowsheet Date 12/28/2021 Ford Score Blood Edema Fundus Height Fundus Units Glucose Ketones Leukocytes Nitrite Labor Signs Protein Cervic Dilation Cervic Effacement Cervic Station neg none negative none Negative none neg Type Weight in lbs Pre/Post Dialysis Refused With clothes 268.041919410570 BP Diastolic BP Location Tested BP Systolic BP Type 86 130 sitting Fetus Heart Rate Present Fetus Movement A Yes Comments no lof, no vb, only concern is rash on legs, abdomen and feet. cb///Amparo reported decreased movement. NST reactive/reassuring. She made a comment to the nurse that the baby's heart rate is high and they probably wont even do anything about it. Discussed with Amparo and her mom that baby's heart rate has a baseline at 150, which is normal, and is reactive. Discussed that given marginal cord insertion, DFM, and Amparo's anxiety, will start twice weekly NSTs. She is very pleased with this plan. Amparo continues to struggle with the pruritic rash. She tried the triamcinolone cream but no improvement. Discussed taking pepcid (already has rx), starting hydrocortisone cream, oatmeal baths (sparingly given UTIs), and benadryl. Discussed that bile acids and LFTs are pending, but given rash this is less likely cholestasis. Discussed if PUPPs, may not resolve until after delivery. She has a single dose of ATB remaining, but given rash and unclear if PUPPs versus antibiotic reaction, plan to hold. Discussed continuing Keflex suppression in the meantime. She and her mother are VERY worried about E. Coli. Discussed will perform weekly urine cultures from here on until the end of delivery to ensure resolved. Amparo wants to have three visitors at time of delivery (her mom, her dad, and baby's dad). I feel this is reasonable given her anxiety. I have discussed this with Dr. Spears as well. Will advocate for her to have three visitors at the hospital. Amparo is open to having any delivery provider as long as her dad can be there for delivery. Return on Monday with NST and URI. KRA Flowsheet Date 12/30/2021 Ford Score Blood Edema Fundus Height Fundus Units Glucose Ketones Leukocytes Nitrite Labor Signs Protein Cervic Dilation Cervic Effacement Cervic Station Type Weight in lbs Pre/Post Dialysis Refused BP Diastolic BP Location Tested BP Systolic BP Type Fetus Heart Rate Present Fetus Movement Comments [facility] triage - PROM confirmed with Amnisure, Exam: /-2. Transferred to ./SMO Menstrual History Last Menstrual Date Menses Monthly On Bcp Conception Prior Menses Frequency Hcg Plus Date Menarche Onset Age 1003/27/2021 false 13 Genetic Screening And Infection History Question Response Note Patient's Age Will Be 35 Yea rs Or Older At Estimated Date of Delivery false Thalassemia (Norwegian, Indonesian, Mediterranean, Or Background): MCV < 80 false Neural Tube Defect (Meningom yelocele, Spina Bifida, Or Anencephaly) false Congenital Heart Defect false Down Syndrome false Scooter-Sachs (eg, Orthodox, Cajun , Syriac-Cheyenne) false Aquiles Disease false Sickle Cell Disease Or Trait () false Hemophilia Or Other Blood Disorders false Muscular Dystrophy false Cystic Fibrosis false Whitwell's Chorea false Mental Retardation/Autism false If Yes, Was Person Tested For Fragile X? false Other Inherited Genetic Or C hromosomal Disorder true Twins, FOB side of family Maternal Metabolic Disorder (eg, Type 1 Diabetes, PKU) true pt has hx of pcos, prediabet es Patient Or Baby's Father Had A Child With Defects Not Listed Above false Recurrent Loss, Or A Stillbirth false Medications (including Suppl ements, Vitamins, Herbs, OTC Drugs), Illicit/Recreational Drugs, Alcohol false If Yes, Agent(s) And Strength/Dosage false Any Other Genetic History false Live With Someone With TB Or Exposed To TB false Patient Or Partner Has Histo ry Of Genital Herpes false Rash Or Viral Illness Since Last Menstrual Period false History Of STD, Gonorrhea, C hlamydia, HPV, Syphilis false Other Infection History false History of HIV false History of Hepatitis false Prior GBS-infected child false Recent Travel Outside of Country false Plans and Education First Trimester Discussed Date Discussion Item Discussion Note Discuss ed By 07/21/2021 Desire for seeking, hx of pcos [place] [id number] 07/21/2021 Alcohol denies 07/21/2021 Illicit/recreational drugs denies [place]ary [email or web address] 07/21/2021 Nutrition discussed [email or web address] 07/21/2021 Weight gain counseling discussed [place] [id number] 07/21/2021 Intimate Partner Violence denies [place] [id number] 07/21/2021 Unstable Housing denies [email or web address] 07/21/2021 Use of any medicatio ns (including supplements, vitamins, herbs, or OTC drugs) discussed [email or web address] 07/21/2021 Avoidance of saunas or hot tubs discussed 07/21/2021 Indications for ultrasonography discussed [email or web address] 07/21/2021 [facility]ucation Barriers [facility] 07/21/2021 Anticipated course o f care discussed [id number] 07/21/2021 Toxoplasmosis precau tions (cats/raw meat) discussed, 4 dogs [email or web address] 07/21/2021 Sexual activity discussed [email or web address] 07/21/2021 Exercise discussed [email or web address] 07/21/2021 Tobacco/smoking cess ation counseling (ask, advise, assess, assist, and arrange) denies [email or web address] 07/21/2021 Barriers to Care denies [email or web address] 07/21/2021 Environmental/work hazards [email or web address] 07/21/2021 Depression/Anxiety ( should be performed at least once during period) hx of depression/anxiety took medication at age 11, does not need/want medication [email or web address] 07/21/2021 WIC/Hands Referral discussed [email or web address] 07/21/2021 Nutrition counseling ; special diet; dietary precautions (mercury, listeriosis) discussed [email or web address] 07/21/2021 Dental Care / Refer to Dentist discussed [email or web address] 07/21/2021 Seat belt use discussed [email or web address] 07/21/2021 Childbirth classes/h ospital facilities discussed [email or web address] 07/21/2021 discussed/desires [email or web address] 07/21/2021 Screening for aneuploidy discussed [place] [id number] Second Trimester Discussed Date Discussion Item Discussion Note Discuss ed By 07/21/2021 Selecting a Raphine Care Provider discuss ed/[facility] 07/21/2021 Care Planning discussed [facility] [place] 07/21/2021 Depression/Anxiety ( should be performed at least once during period) discussed [email or web address] 07/21/2021 Intimate Partner Violence [facility]/[address] anning & Contraception discussed [email or web address] 07/21/2021 Signs and Symptoms of Labor discu ssed [email or web address] 07/21/2021 Tobacco Cessation Co unseling (ask, advise, assess, assist, & arrange) discussed Third Trimester Discussed Date Discussion Item Discussion Note Discuss ed By 07/21/2021 Labor Support Person(s) discussed [facility] 07/21/2021 Feeding Intention breast [facility] [email or web address] 07/21/2021 Labor Signs discussed [email or web address] 07/21/2021 Intimate Partner Violence [place] [id number] 07/21/2021 Pain Management Plans wanting to go natur al [email or web address] 07/21/2021 Movement Monitoring [place] [id number] 07/21/2021 Cervical Ripening/La bor Induction Counseling discussed [email or web address] 07/21/2021 Trial of Labor Counseling discus sed [email or web address] 07/21/2021 Circumcision Preference discussed/desires [email or web address] 07/21/2021 Signs and Symptoms of Preeclampsia discus sed [email or web address] 07/21/2021 Education (N ewborn screening, immunizations, jaundice, SIDS/Safe Sleeping, Car Seat) discussed [email or web address] 07/21/2021 Depression discussed [place] [id number]/21/2021 Depression/Anxiety ( should be performed at least once during period) discussed [email or web address] 07/21/2021 Postterm Counseling discussed [place] [id number] 2 07/21/2021 Feeding discussed/breast 07/21/2021 Family Medical Leave or Disabilty Forms discussed [email or web address] 07/21/2021 Tobacco Cessation Co unseling (ask, advise, assess, assist, & arrange) discussed [email or web address] Delivery Information Delivery Date Delivery Type Labor Anesthesia Weeks Gestation Incision Type Labor Labor Length Hrs Delivered By Post Complications Tubal Sterilization Discharge Date Comments 2 Sponta neous General 34.6 true PPROM transfer to , vaginal delivery Discharge Information Feeding Method Contraceptive Method Maternal HG B and HCT Levels
== END 2024-12-26 23:59 | disposition home or self-care (01) ==
LOC: LAB 11:02
PROVIDERS: PCP Family Medicine; Visit Provider Obstetrics & Gynecology
DX: Z34.90 Encounter for supervision of normal pregnancy, unspecified, unspecified trimester (principal)
CPT/HCPCS: 36415; 84144; 84702